=== PATIENT | female | born 1990 | race Caucasian/White ===

== ENCOUNTER 2016-11-25 18:32 | Emergency (ER) | payer MEDICAID ==
[2016-11-25] MEDS ORDERED: KETOROLAC 60 MG/2 ML VIAL IVP STA (18:46)
[2016-11-25] MEDS ORDERED: KETOROLAC 30 MG/ML VIAL ONE (18:49)
[2016-11-25] MEDS ORDERED: SODIUM CHLORIDE 0.9% 1,000 ML IV ONE (18:49)
[2016-11-25] MEDS ORDERED: IOPAMIDOL-300 100 ML VIAL IVP ONE (19:24)
[2016-11-25] MEDS ORDERED: MORPHINE 2 MG/ML SYRINGE IVP STA (19:51)
[2016-11-25] MEDS ORDERED: MORPHINE 2 MG/ML SYRINGE ONE (19:56)
[2016-11-25] MEDS ORDERED: HYDROmorphone 1 MG/ML SYRINGE IVP STA (20:45)
[2016-11-25] MEDS ORDERED: HYDROmorphone 1 MG/ML SYRINGE ONE (20:53)
[2016-11-25] MEDS ORDERED: oxyCOD/ACETAMIN 5 MG/325 MG TABLET PO STA (22:28)
[2016-11-25] MEDS ORDERED: oxyCOD/ACETAMIN 5 MG/325 MG TABLET PO ONE (22:35)
== END 2016-11-25 22:50 | disposition home or self-care (01) ==
DX: N83.202 Unspecified ovarian cyst, left side (principal)
CPT/HCPCS: 36415; 74177; 76830; 76856; 80053; 81003; 83690; 84702; 85025; 93975; 96374; 96375; 99284; A9270; J1170; Q9967

== ENCOUNTER 2017-08-03 09:03 | Emergency (ER) | payer MEDICAID ==
[2017-08-03 09:27] LABS: BILIRUBIN,URINE NEGATIVE (NEGATIVE)
[2017-08-03 09:32] LABS: UA CHARGE (STRIP ONLY) YES; UR CULTURE IF IND NOT INDICATED
[2017-08-03 09:55] LABS: ALBUMIN/GLOBULIN RATIO 1.4 (1.0-2.2); BILIRUBIN,TOTAL 0.4 mg/dL (0.2-1.0); CALCIUM 9.5 mg/dL (8.5-10.3); CREATININE 0.5 mg/dL (0.4-1.0); POTASSIUM 3.7 mmol/L (3.5-5.0); TOTAL PROTEIN 7.2 g/dL (6.7-8.2)
[2017-08-03] MEDS ORDERED: ACETAMINOPHEN 325 MG TABLET PO STA (09:56)
--- NOTE | 2017-08-03 10:00 | ED Physician Documentation ---
History of Present Illness - Stated complaint Stated Complaint: ABD PX/8WKS PREG - Chief complaint Chief Complaint: Abd Pain - Additonal information Additional information: hx from pt 26 LMP 10/2 abrupt onset severe lower abd pain and slight vag bleed prior miscarriage no OB care yet [facility] Systems Constitutional: denies: Fever Cardiac: denies: Chest pain / pressure Respiratory: denies: Dyspnea GI: reports: Abdominal Swelling. 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 - Present Medications Home Medications: Ambulatory Orders Medication Instructions Recorded Confirmed Pnv No.122/Iron/Folic Acid 1 tab PO DAILY 08/03/17 08/03/17 [ Multi Tablet] - Allergies Allergies/Adverse Reactions: Allergies Allergy/AdvReac Type Severity Reaction Status Date / Time No Known Drug Allergies Allergy Verified 11/25/16 18:38 - Social History Does the pt smoke?: No Smoking Status: Never smoker Does the pt drink ETOH?: No Does the pt have substance abuse?: No - Immunizations Immunizations are current?: Yes PD ED PE NORMAL - Vitals Vital signs reviewed: Yes - Cardiac Cardiac: RRR - Respiratory Respiratory: No respiratory distress - Abdomen Abdomen: No: Soft (rigid), Non tender (TTP lower abd) - Female 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 : 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 (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, os closed, no blood, no dc, cx sent) - Neuro Neuro: Alert and oriented X 3 Results - Vitals Vitals: Vital Signs - 24 hr 08/03/17 08/03/17 08/03/17 09:10 10:20 10:39 Temperature 37.3 C 37.7 C H Heart Rate 77 89 80 Respiratory 18 18 18 Rate Blood Pressure 144/68 H 169/90 H O2 Saturation 98 97 100 08/03/17 08/03/17 11:58 13:44 Temperature 37.0 C 36.6 C Heart Rate 62 71 Respiratory 15 15 Rate Blood Pressure 120/59 L 138/65 H O2 Saturation 99 100 Oxygen O2 Source Room air - Labs Labs: Laboratory Tests 08/03/17 08/03/17 08/03/17 09:18 09:30 09:34 WBC RBC Hgb Hct MCV MCH MCHC RDW Plt Count MPV Neut # Lymph # King # Eos # Baso # Absolute Nucleated RBC Nucleated RBC % Sodium 135 Potassium 3.7 Chloride 101 Carbon Dioxide 23 Anion Gap 11.0 BUN 12 Creatinine 0.5 Estimated GFR (MDRD) 148 Glucose 95 Calcium 9.5 Total Bilirubin 0.4 AST 19 ALT 14 Alkaline Phosphatase 51 Total Protein 7.2 Albumin 4.2 Globulin 3.0 Albumin/Globulin Ratio 1.4 Lipase 31 HCG, Quant 08787.00 Urine Color YELLOW Urine Clarity CLEAR Urine pH 7.0 Ur Specific Ola 1.015 Urine Protein NEGATIVE Urine Glucose (UA) NEGATIVE Urine Ketones NEGATIVE Urine Occult Blood NEGATIVE Urine Nitrite NEGATIVE Urine Bilirubin NEGATIVE Urine Urobilinogen 0.2 (NORMAL) Ur Leukocyte Esterase NEGATIVE Ur Microscopic Review NOT INDICATED Urine Culture Comments NOT INDICATED Blood Type 08/03/17 08/03/17 10:38 10:38 WBC 6.5 RBC 4.13 L Hgb 12.9 Hct 37.3 MCV 90.5 MCH 31.4 H MCHC 34.7 RDW 13.6 Plt Count 217 MPV 8.6 Neut # 4.0 Lymph # 1.8 King # 0.6 Eos # 0.0 Baso # 0.0 Absolute Nucleated RBC 0.00 Nucleated RBC % 0.0 Sodium Potassium Chloride Carbon Dioxide Anion Gap BUN Creatinine Estimated GFR (MDRD) Glucose Calcium Total Bilirubin AST ALT Alkaline Phosphatase Total Protein Albumin Globulin Albumin/Globulin Ratio Lipase HCG, Quant Urine Color Urine Clarity Urine pH Ur Specific Ola Urine Protein Urine Glucose (UA) Urine Ketones Urine Occult Blood Urine Nitrite Urine Bilirubin Urine Urobilinogen Ur Leukocyte Esterase Ur Microscopic Review Urine Culture Comments Blood Type O POSITIVE - Rads (name of study) OB sono Radiology: See rad report (single 6 week 4 day IUP FHR 111 no FF, small R ovarian cyst, no torsion) PD MEDICAL DECISION MAKING - ED course ED course: sharp and crampy lower abd pain rad to back with small bleeding, O + blood type, IUP on sono with FHR, peritoneal on exam but no FF or other abn seen on sono, serial 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 exams 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, 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, 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 on R but fairly diffuse, pt described pain as occurring intermittently and varying intervals and does not sound typical for appy concerned about severity of pain - plan to dc with threatened AB precautions but will d/w OB to arrange next day recheck d/w OB satellite installation technician Dr Jesus Departure - Departure Disposition: 01 Home, Self Care Clinical Impression: Threatened miscarriage Condition: Good Follow-Up: Mariano Jesus MD [Provider Admit Priv/Credential] - (tomorrow for a recheck - call to schedule a time) Comments: You are and the ultrasound shows a live baby in the uterus and no signs of an ectopic or ovarian problem. Your blood type is O + Your cervix is closed and there was no suggestion of infection on your pelvic exam. Having examined your belly over several hours, i do not think this is appendicitis. But I am concerned about how severe the pain is and so i have spoken to our OB Dr Jesus and he will see in the OB clinic at [facility] tomorrow for a recheck. May take tylenol for the pain i n the mean time ' Forms: Activity restrictions
[2017-08-03] MEDS ORDERED: ACETAMINOPHEN 325 MG TABLET PO ONE (10:09)
[2017-08-03] MEDS ORDERED: MORPHINE 2 MG/ML SYRINGE IVP STA (10:23)
[2017-08-03] MEDS ORDERED: MORPHINE 2 MG/ML SYRINGE ONE (10:35)
[2017-08-03 10:46] LABS: BASOPHILS % (AUTO) 0.7 %; EOSINOPHILS % (AUTO) 0.3 %; HCT - HEMATOCRIT 37.3 % (37.0-47.0); HGB - HEMOGLOBIN 12.9 g/dL (12.0-16.0); LYMPHOCYTES # (AUTO) 1.8 10^3/uL (1.5-3.5); LYMPHOCYTES % (AUTO) 27.5 %; MEAN CORPUSCULAR HEMOGLOBIN 31.4 pg (27.0-31.0); MEAN CORPUSCULAR HGB CONC 34.7 g/dL (32.0-36.0); MEAN CORPUSCULAR VOLUME 90.5 fL (81.0-99.0); MEAN PLATELET VOLUME 8.6 fL (7.9-10.8); MONOCYTES # (AUTO) 0.6 10^3/uL (0.0-1.0); MONOCYTES % (AUTO) 9.6 %; NEUTROPHILS % (AUTO) 61.9 %; RED BLOOD COUNT 4.13 10^6/uL (4.20-5.40); RED CELL DISTRIBUTION WIDTH 13.6 % (12.0-15.0); UNCORRECTED WHITE BLOOD COUNT 6.5 x10^3/uL; WHITE BLOOD COUNT 6.5 x10^3/uL (4.8-10.8)
[2017-08-03 13:44] VITALS: BP 138/65
--- NOTE | 2017-08-04 14:41 | Ultrasound Report ---
OB ULTRASOUND: 08/03/2017 CLINICAL HISTORY: Last menstrual period 05/30/2017, abrupt abdominal pain, question ectopic . TECHNIQUE: Real-time scanning by the farmworker cranberry with saved static images reviewed. Transabdominal approach with global evaluation; endovaginal study for detailed assessment of the fetus. LAST MENSTRUAL PERIOD 05/30/2017 Clinical Age 9 weeks 2 days US Age 6 weeks 4 days EFW Had[place] -- EFW% Hadlock -- Heart Rate 111 bpm EDC 03/06/2017 US EDC 03/25/2018 BPD Hadlock -- HC Hadlock -- AC Hadlock -- FL Hadlock -- Presentation -- Placental Location -- Cervical Length -- Amniotic Fluid -- FINDINGS: There is a single intrauterine gestational sac, mean gestational sac diameter 19.7 mm, 6 weeks 6 days. [place]-rump length 5.8 mm, 6 weeks 4 days; BETH 03/25/2018. Retroverted uterus without focal abnormality. Right ovary is 3.6 x 3.8 x 3.2 cm, volume 22.8 cubic centimeters, 2.6 x 2.8 x 2.5 cm cyst. Left ovary is 2.4 x 2.9 x 2.3 cm, volume 8.3 cubic centimeters, small cyst 1.8 x 2 x 1.1 cm. Minimal free fluid. IMPRESSION: SINGLE INTRAUTERINE GESTATION, AGE BY CROWN-RUMP LENGTH MEASUREMENTS TODAY IS 6 WEEKS 4 DAYS, BETH 03/25/2018. HEART RATE 111 BPM. YOLK SAC 2.4 MM. MTDD
== END 2017-08-03 14:13 | disposition home or self-care (01) ==
LOC: ED 09:03
DX: O20.0 Threatened abortion (principal); Z3A.01 Less than 8 weeks gestation of pregnancy
CPT/HCPCS: 36415; 76801; 76817; 80053; 81003; 83690; 84702; 85025; 86900; 86901; 87491; 87591; 96374; 99283; 99284; A9270; J2270; 81001; 87086

== ENCOUNTER 2017-09-02 16:21 | Outpatient (CLI) | payer MEDICAID | END 2017-09-02 16:22 | disposition home or self-care (01) | LOC: LAB.R 16:21 | PROVIDERS: ATTEND Registered Nurse | DX: Z11.3 Encounter for screening for infections with a predominantly sexual mode of transmission (principal) | CPT/HCPCS: 87491; 87591 ==

== ENCOUNTER 2017-10-19 11:23 | Outpatient (CLI) | payer MEDICAID ==
[2017-10-19 11:56] LABS: BASOPHILS % (AUTO) 0.5 %; EOSINOPHILS # (AUTO) 0.1 10^3/uL (0.0-0.7); EOSINOPHILS % (AUTO) 0.8 %; HGB - HEMOGLOBIN 12.6 g/dL (12.0-16.0); LYMPHOCYTES # (AUTO) 2.1 10^3/uL (1.5-3.5); MEAN CORPUSCULAR HEMOGLOBIN 32.4 pg (27.0-31.0); MEAN CORPUSCULAR HGB CONC 35.2 g/dL (32.0-36.0); MEAN CORPUSCULAR VOLUME 92.1 fL (81.0-99.0); MEAN PLATELET VOLUME 8.7 fL (7.9-10.8); MONOCYTES # (AUTO) 0.6 10^3/uL (0.0-1.0); MONOCYTES % (AUTO) 7.7 %; NEUTROPHILS # (AUTO) 5.6 10^3/uL (1.5-6.6); PLT - PLATELET COUNT 212 10^3/uL (130-450); RED CELL DISTRIBUTION WIDTH 13.2 % (12.0-15.0); WHITE BLOOD COUNT 8.5 x10^3/uL (4.8-10.8)
[2017-10-19 12:03] LABS: BILIRUBIN,URINE NEGATIVE (NEGATIVE); CLARITY,URINE CLEAR (CLEAR); GLUCOSE, URINE (UA) NEGATIVE (NEGATIVE); KETONES,URINE (UA) 15 mg/dL (NEGATIVE); LEUKOCYTE ESTERASE, URINE NEGATIVE (NEGATIVE); NITRITE,URINE NEGATIVE (NEGATIVE); OCCULT BLOOD,URINE NEGATIVE (NEGATIVE); PH,URINE 6.5 PH (5.0-7.5); PROTEIN,URINE NEGATIVE (NEGATIVE); UROBILINOGEN,URINE 0.2 (NORMAL) E.U./dL (NORMAL)
[2017-10-19 12:31] LABS: BACTERIA,URINE Rare /HPF (None Seen); RBC,URINE 0-5 /HPF (0-5); SQUAMOUS EPITHELIAL CELL,UR MANY Squamous (<= Few)
[2017-10-20 10:45] LABS: HEPATITIS B SURFACE ANTIGEN NON-REACTIVE (NON-REACTIVE)
[2017-10-20 13:31] LABS: HIV AG/AB 4TH GEN NON-REACTIVE (NON-REACTIVE)
== END 2017-10-19 11:24 | disposition home or self-care (01) ==
LOC: LAB 11:23
PROVIDERS: ATTEND Registered Nurse
DX: Z36.9 Encounter for antenatal screening, unspecified (principal)
CPT/HCPCS: 36415; 81001; 81599; 85025; 86762; 86850; 86900; 86901; 87340; 87389

== ENCOUNTER 2017-11-11 12:16 | Outpatient (CLI) | payer MEDICAID ==
--- NOTE | 2017-11-14 11:58 | Ultrasound Report ---
DETAILED OB ANATOMIC SURVEY: 11/11/2017 COMPARISON: OB ultrasound 08/03/2017. INDICATION: Anatomic survey. TECHNIQUE: Real-time scanning was performed with entry level marketing representative static images obtained. LAST MENSTRUAL PERIOD: 06/20/2017 Clinical Age: 20 weeks 4 days US Age: 21 weeks 0 days EFW Hadlock: 387 g EFW% Hadlock: --- Heart Rate: 146 bpm EDC: 03/27/2018 US EDC: 03/24/2018 BPD [place]: 21 weeks 3 days Mean mm 50.8 HC [place]: 20 weeks 5 days Mean mm 183.8 AC Hadlock: 21 weeks 3 days Mean mm 163.1 FL Hadlock: 20 weeks 3 days Mean mm 33.2 Presentation: variable Placental Location: posterior Cervical Length: 3.4 cm Amniotic Fluid: 4.8 cm FINDINGS: The following structures were evaluated and appeared normal: Choroid plexus, lateral ventricles, midline falx, cavum septum pellucidum, cisterna magnum, cerebellum, nuchal fold, nasal bone, coronal face, nose, lips, open hands, cardiac situs, 4 chamber heart, ventricular outflow tracts, stomach and situs, heart, stomach, bladder, diaphragm, kidneys, bladder, cord insertion , spine, upper and lower extremities, and leg foot relationships. The following maternal structures appear unremarkable, the uterus, cervix and bilateral adnexa. There is no free fluid. The cervix is 3.4 cm long and closed. IMPRESSION: SINGLE VIABLE INTRAUTERINE , SIZE CONCORDANT WITH DATES. NO ANOMALIES. MTDD
== END 2017-11-11 12:17 | disposition home or self-care (01) ==
LOC: DI 12:16
PROVIDERS: ATTEND Nurse Practitioner Obstetrics & Gynecology
DX: Z36.9 Encounter for antenatal screening, unspecified (principal)
CPT/HCPCS: 76811

== ENCOUNTER 2017-11-16 15:00 | Outpatient (CLI) | payer MEDICAID | END 2017-11-16 15:01 | disposition home or self-care (01) | LOC: LAB.R 15:00 | PROVIDERS: ATTEND Registered Nurse | DX: Z34.82 Encounter for supervision of other normal pregnancy, second trimester (principal) | CPT/HCPCS: 87086 ==

== ENCOUNTER 2017-12-14 12:03 | Outpatient (CLI) | payer MEDICAID ==
[2017-12-14 12:41] VITALS: BP 123/59
[2017-12-14 12:54] LABS: RUPTURE OF MEMBRANES PLUS NEGATIVE (NEGATIVE)
== END 2017-12-14 13:22 | disposition home or self-care (01) ==
LOC: WFO 12:03 → FBP 12:05 → WFO 13:22
PROVIDERS: ATTEND Nurse Practitioner Obstetrics & Gynecology
DX: O47.02 False labor before 37 completed weeks of gestation, second trimester (principal); Z3A.25 25 weeks gestation of pregnancy
CPT/HCPCS: 84112; 99212

== ENCOUNTER 2018-01-31 12:06 | Outpatient (CLI) | payer MEDICAID ==
[2018-01-31 13:35] LABS: HGB - HEMOGLOBIN 12.4 g/dL (12.0-16.0); MEAN CORPUSCULAR HEMOGLOBIN 32.6 pg (27.0-31.0); MEAN CORPUSCULAR HGB CONC 35.1 g/dL (32.0-36.0); MEAN CORPUSCULAR VOLUME 92.8 fL (81.0-99.0); MEAN PLATELET VOLUME 9.3 fL (7.9-10.8); RED BLOOD COUNT 3.82 10^6/uL (4.20-5.40); RED CELL DISTRIBUTION WIDTH 12.5 % (12.0-15.0); WHITE BLOOD COUNT 9.9 x10^3/uL (4.8-10.8)
== END 2018-01-31 12:07 | disposition home or self-care (01) ==
LOC: LAB 12:06
PROVIDERS: ATTEND Nurse Practitioner Obstetrics & Gynecology
DX: Z36.89 Encounter for other specified antenatal screening (principal)
CPT/HCPCS: 36415; 82950; 85027; 86850

== ENCOUNTER 2018-02-15 16:55 | Outpatient (CLI) | payer MEDICAID ==
[2018-02-15 17:54] LABS: RUPTURE OF MEMBRANES PLUS NEGATIVE (NEGATIVE)
[2018-02-15 18:43] VITALS: BP 136/85
--- NOTE | 2018-02-15 18:43 | PROVIDER PROGRESS NOTE ---
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 I was called by Ms. Luh CNM who informed me that patient was evaluated in clinc and that nitrazine and ferning testing were both +. Patient sent over to [facility] from clinic. Patient reports believing she has been leaking fluid for several days, no big gush, ROS negative for contractions, fever, chills, severe abdominal pain or other. Patient is a 27 y.o. EGA 34 2/7 weeks. She is requesting that a female provider examine and evaluate her here instead of a male provider. She is OK with me looking over Lois Craven's shoulder while she performs the speculum exam, assessment and collection of specimens for evaluation by me. Patient has never had BV, denies foul vaginal odor or itching. O: VSS/AF RNST, Category 1 tracing with no contractions. Speculum Exam on FBP: Clear and thin and watery fluid, small amount in posterior vagina. Nitrazine Neg Valsalva Neg Ferning Test Neg by me ROM+ test Negative Cx exam not performed, but appears visually closed ABD US by me: KOKO 13.2 with active fetus and posterior fundal placenta. A/P: Patient does not have ROM on my examination. Patient informed and reassured by findings. Cause of fluid in vagina consistent with physiologic discharge of . Patient to follow up at regularly scheduled appointments, sooner prn. All questions answered to her and spouse's satisfaction. Objective - Lab Results Other Labs: Lab Results x24hrs 02/15/18 Range/Units 17:29 Membranes Rupture NEGATIVE (NEGATIVE)
== END 2018-02-15 18:10 | disposition home or self-care (01) ==
LOC: FBP 16:55 → WFO 16:55
PROVIDERS: ATTEND Registered Nurse
DX: Z34.83 Encounter for supervision of other normal pregnancy, third trimester (principal)
CPT/HCPCS: 59025; 84112; 87081; 87480; 87510; 87660; 99212

== ENCOUNTER 2018-02-28 11:03 | Outpatient (CLI) | payer MEDICAID ==
[2018-02-28 11:47] LABS: CREATININE 0.5 mg/dL (0.4-1.0)
[2018-02-28 11:52] LABS: BASOPHILS % (AUTO) 0.5 %; EOSINOPHILS # (AUTO) 0.1 10^3/uL (0.0-0.7); EOSINOPHILS % (AUTO) 0.9 %; HGB - HEMOGLOBIN 11.8 g/dL (12.0-16.0); LYMPHOCYTES # (AUTO) 1.7 10^3/uL (1.5-3.5); LYMPHOCYTES % (AUTO) 19.5 %; MEAN CORPUSCULAR HEMOGLOBIN 33.1 pg (27.0-31.0); MEAN CORPUSCULAR HGB CONC 34.7 g/dL (32.0-36.0); MEAN CORPUSCULAR VOLUME 95.4 fL (81.0-99.0); MEAN PLATELET VOLUME 10.7 fL (7.9-10.8); MONOCYTES # (AUTO) 0.7 10^3/uL (0.0-1.0); MONOCYTES % (AUTO) 7.8 %; NEUTROPHILS # (AUTO) 6.3 10^3/uL (1.5-6.6); NEUTROPHILS % (AUTO) 71.3 %; PLT - PLATELET COUNT 159 10^3/uL (130-450); RED BLOOD COUNT 3.57 10^6/uL (4.20-5.40); RED CELL DISTRIBUTION WIDTH 12.6 % (12.0-15.0); WHITE BLOOD COUNT 8.8 x10^3/uL (4.8-10.8)
[2018-02-28 11:58] LABS: CREATININE,URINE 314.5 mg/dL; PROTEIN/CREATININE RATIO,URINE 0.2 (<=0.2)
[2018-02-28 12:29] VITALS: BP 130/72
== END 2018-02-28 12:15 | disposition home or self-care (01) ==
LOC: WFO 11:03 → FBP 11:04 → WFO 12:15
PROVIDERS: ATTEND Nurse Practitioner Obstetrics & Gynecology
DX: O16.3 Unspecified maternal hypertension, third trimester (principal); Z3A.36 36 weeks gestation of pregnancy
CPT/HCPCS: 36415; 59025; 82565; 82570; 83615; 84156; 84450; 84550; 85025

== ENCOUNTER 2018-03-02 10:47 | Outpatient (CLI) | payer MEDICAID ==
[2018-03-02 14:15] LABS: COLLECTION TIME,URINE 1440 min; CREATININE,URINE 155.9 mg/dL
[2018-03-02 14:16] LABS: TOTAL VOLUME,URINE 530 mL
[2018-03-03 11:08] LABS: TOTAL PROTEIN 24HR,URINE 339 mg/24hr (40-150); TOTAL PROTEIN,URINE TIMED 64 mg/dL; TOTAL VOLUME 24HRS,URINE 530 mL
== END 2018-03-02 10:48 | disposition home or self-care (01) ==
LOC: LAB 10:47
PROVIDERS: ATTEND Nurse Practitioner Obstetrics & Gynecology
DX: Z36.9 Encounter for antenatal screening, unspecified (principal); O14.03 Mild to moderate pre-eclampsia, third trimester
CPT/HCPCS: 36415; 82575; 84156

== ENCOUNTER 2018-03-02 11:05 | Outpatient (CLI) | payer MEDICAID ==
[2018-03-02 11:41] VITALS: BP 121/74
[2018-03-02 12:18] LABS: ALT ALANINE AMINOTRANSFERASE 26 IU/L (10-60); AST ASPARTATE AMINOTRANSFERASE 32 IU/L (10-42)
[2018-03-06 17:37] LABS: CHENODEOXYCHOLIC ACID 0.7 umol/L (< OR = 3.1); CHOLIC ACID 0.6 umol/L (< OR = 1.8); DEOXYCHOLIC ACID <0.5 umol/L (< OR = 2.4); TOTAL BILE ACIDS <1.5 umol/L (< OR = 6.8)
== END 2018-03-02 12:05 | disposition home or self-care (01) ==
LOC: WFO 11:05 → FBP 11:07 → WFO 12:05
PROVIDERS: ATTEND Obstetrics & Gynecology
DX: O26.893 Other specified pregnancy related conditions, third trimester (principal); O14.03 Mild to moderate pre-eclampsia, third trimester; Z36.9 Encounter for antenatal screening, unspecified; Z3A.36 36 weeks gestation of pregnancy
CPT/HCPCS: 36415; 59025; 82542; 82575; 84156; 84450; 84460

== ENCOUNTER 2018-03-04 19:10 | Outpatient (CLI) | payer MEDICAID ==
[2018-03-04 19:40] LABS: BASOPHILS % (AUTO) 0.3 %; EOSINOPHILS % (AUTO) 0.5 %; HGB - HEMOGLOBIN 12.4 g/dL (12.0-16.0); LYMPHOCYTES # (AUTO) 2.3 10^3/uL (1.5-3.5); LYMPHOCYTES % (AUTO) 25.8 %; MEAN CORPUSCULAR HEMOGLOBIN 33.8 pg (27.0-31.0); MEAN CORPUSCULAR HGB CONC 35.5 g/dL (32.0-36.0); MEAN CORPUSCULAR VOLUME 95.2 fL (81.0-99.0); MEAN PLATELET VOLUME 10.3 fL (7.9-10.8); MONOCYTES # (AUTO) 0.8 10^3/uL (0.0-1.0); MONOCYTES % (AUTO) 8.4 %; NEUTROPHILS # (AUTO) 5.9 10^3/uL (1.5-6.6); PLT - PLATELET COUNT 175 10^3/uL (130-450); RED BLOOD COUNT 3.66 10^6/uL (4.20-5.40); RED CELL DISTRIBUTION WIDTH 12.8 % (12.0-15.0); WHITE BLOOD COUNT 9.1 x10^3/uL (4.8-10.8)
[2018-03-04 19:51] LABS: URIC ACID 4.6 mg/dL (2.6-7.2)
[2018-03-04 22:29] VITALS: BP 140/82
[2018-03-05] MEDS ORDERED: LACTATED RINGERS 1,000 ML IV ONE (01:53)
[2018-03-05] MEDS ORDERED: OXYTOCIN/SODIUM CHLORIDE 500 ML IV ONE (02:14)
== END 2018-03-04 21:28 | disposition home or self-care (01) ==
LOC: WFO 19:10 → FBP 19:12 → WFO 21:28
PROVIDERS: ATTEND Registered Nurse
DX: O14.93 Unspecified pre-eclampsia, third trimester (principal); Z3A.36 36 weeks gestation of pregnancy
CPT/HCPCS: 36415; 59025; 83615; 84450; 84550; 85025; 99212

== ENCOUNTER 2018-03-05 10:38 | Inpatient (IN) | payer MEDICAID ==
[2018-03-05] MEDS ORDERED: SODIUM CHLORIDE FLUSH 0.9% 10 ML SYRINGE ONE (11:27)
[2018-03-05 11:41] LABS: BASOPHILS % (AUTO) 0.4 %; EOSINOPHILS % (AUTO) 0.5 %; HGB - HEMOGLOBIN 12.2 g/dL (12.0-16.0); LYMPHOCYTES # (AUTO) 1.8 10^3/uL (1.5-3.5); LYMPHOCYTES % (AUTO) 23.4 %; MEAN CORPUSCULAR HGB CONC 34.8 g/dL (32.0-36.0); MEAN CORPUSCULAR VOLUME 94.7 fL (81.0-99.0); MEAN PLATELET VOLUME 10.9 fL (7.9-10.8); MONOCYTES # (AUTO) 0.7 10^3/uL (0.0-1.0); MONOCYTES % (AUTO) 8.5 %; NEUTROPHILS # (AUTO) 5.3 10^3/uL (1.5-6.6); NEUTROPHILS % (AUTO) 67.2 %; PLT - PLATELET COUNT 160 10^3/uL (130-450); WHITE BLOOD COUNT 7.9 x10^3/uL (4.8-10.8)
[2018-03-05 11:48] LABS: URIC ACID 4.6 mg/dL (2.6-7.2)
[2018-03-05] MEDS ORDERED: OXYTOCIN/SODIUM CHLORIDE 250 ML IV ONE (13:23)
[2018-03-05] MEDS ORDERED: ONDANSETRON 4 MG/2 ML VIAL IVP PRN (13:23)
[2018-03-05] MEDS ORDERED: PROMETHAZINE 25 MG TABLET PO PRN (13:23)
--- NOTE | 2018-03-05 13:30 | HISTORY & PHYSICAL EXAMINATION ---
Admit History - Instructions [place]/Slash: -Left hand click circles element as positive or present. -Right hand click slashes element as negative or not present. - Visit Reason Visit Reason: Other (pre-eclampsia w/ increasing BPs, intermittent severe-range elevations, non-persistent) - : 3 Parity: 0 Premature: 0 Ectopic: 0 : 2 Care: positive: [facility] (beginning @ 10 weeks' gestation x9 total visits) Risk/History: positive: None Complications This : positive: Pre-eclampsia Smoking Status: Never smoker - Mother's Labs Mother's Blood Type: positive: O Mother's RH: positive: Positive GBS: positive: Group B Step Negative Rubella Status: positive: Immune Meds/Allgy - Home Medications Home Medications: Ambulatory Orders Medication Instructions Recorded Confirmed Pnv No.122/Iron/Folic Acid 1 tab PO DAILY 08/03/17 08/03/17 [ Multi Tablet] - Allergies Allergies/Adverse Reactions: Allergies Allergy/AdvReac Type Severity Reaction Status Date / Time No Known Drug Allergies Allergy Verified 11/25/16 18:38 Review of Systems - Constitutional Constitutional: reports: Fatigue. denies: Fever, Chills, Malaise - Eyes Eyes: reports: Blurred vision. denies: Pain, Spots in vision - Cardiovascular Cariovascular: reports: Edema. denies: Irregular heart rate, Palpitations, Chest pain - Respiratory Respiratory: reports: SOB with exertion. denies: Cough, Sputum production, Wheezing, SOB at rest - Gastrointestinal Gastrointestinal: denies: Abdominal pain, Constipation, Diarrhea, Change in bowel habits, Nausea, Vomiting - Genitourinary Genitourinary: reports: Frequency, Urgency. denies: Dysuria, Incontinence - Musculoskeletal Musculoskeletal: denies: Muscle pain, Back pain, Muscle aches - Integumentary Integumentary: reports: Pruritis. denies: Rash, Lesions - Neurological Neurological: reports: Headache (intermittent, non-severe). denies: General weakness, Focal weakness, Dizziness, Numbness - Psychiatric Psychiatric: reports: Anxiety (re: pain in labor). denies: Depression - All Other Systems All Other Systems: reports: Other (+FM, no LOF, no contractions she is noting, no VB or changes in vaginal d/c) Physical - Abdominal Exam Vital Signs: Temp Pulse Resp BP Pulse Ox 36.6 C 67 16 140/80 H 98 03/05/18 11:00 03/05/18 11:00 03/05/18 11:00 03/05/18 11:00 03/05/18 11:00 Contraction Frequency (min/apart): rare Contraction Intensity: positive: Mild to moderate Uterine Resting Tone: positive: Soft - Monitoring Heart Rate Baseline: 145 Strip Review: positive: Category I - Presentation Presentation: positive: Vertex - Vaginal Exam Membranes: positive: Membranes intact Dilation (in cm): 1 Effacement (%): 80 Station: positive: 0 Cervical Position: positive: Posterior (soft) - Speculum Exam Speculum Exam Performed: positive: No Findings: negative: Gross leak - Other Notes Labor Progress Note/Additional Text: Saniya Melo is a 27 y/o @ 36w6d by 10 week who received care @ [facility] beginning @ 10 weeks' gestation x9 total visits. Her was complicated by onset of intermittent elevated BP @ 34 weeks' gestation w/ dx of PET @ 36 weeks' gestation w/ worsening BP elevation over the course of the past week, elevated BP now accompanied by intermittent RAMIREZ, some blurry vision. Her has further been complicated by anxiety w/ declination of SSRI for management & generalized pruritus beginning @ 36 weeks' gestation w/ normal LFTs & bile acids pending. She presents today w/ request for initiation of IOL for PET w/ scheduled IOL 03/06/2018, secondary to concerns re: worsening disease process, more frequent HAs & BPs in 160s/100s @ home. 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 PE: GEN: AAOX3, NAD WA gravid female HEENT: Grossly normocephalic, atraumatic RESP: Lungs b/l CTA t/o CARDIAC: RRR nls1s2, no murmur GI: Gravid, NT, lie longitudinal, presentation cephalic; EFW 6-6.5# OB: EFM: BL 145bpm +accels, no decels, mod variability; TOCO: UCs rare; SVE 1/80 /0, posterior, soft : No lesion, no abnormal exudate MS: FROM t/o, no deformity; +3 pitting b/l LE edema to the knee, generalized edema +1 SKIN: warm, well-perfused, C/D/I, no lesion; +tattoos NEURO: B/L LE DTRs +2, no clonus, no focal deficity PSYCH: anxious, but otherwise pleasantly conversant Plan for Labor - Plan For Labor I expect patient to be DC'd or transferred within 96 hours.: Yes Plan for Labor: 1. Reviewed pathophysiology of PET & current findings 2. Reviewed rationale for IOL & need for pre-induction cervical ripening as well as options for timing, reviewed all preinduction cervical ripening modalities; pt elects beginning IOL process now & elects buccal misoprostol as cervical ripening agent, articulates full understanding of all risks/benefits/ alternatives, informed consent obtained 3. Reviewed pain management options, pt desires ultimate early epidural placement, would like to utilize nitrous in the interim; reviewed all risks/ benefits/alternatives, pt articulates full understanding 4. careful BP monitoring w/ initiation of antihypertensive therapy for persistent severe-range BPs, initiation of Magnesium sulfate for same 5. Begin misoprostol 50mcg BC q 4 hours; reassess cervical status as clinically indicated 6. Ambein 10mg for sleep tonight if not actively laboring & if w/o epidural 7. Reviewed anticipatory guidance for preinduction cervical ripening 8. Reassess PET labs daily @ minimum, earlier as clinically warranted 9. Reviewed plan of care w/ pt, partner, RN @ bedside & Dr. 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
[2018-03-05] MEDS: miSOPROStol 100 MCG TABLET BC SCH ×3 (14:16→22:35)
[2018-03-05] MEDS: LACTATED RINGERS 1,000 ML IV SCH (14:19)
[2018-03-05] MEDS: SODIUM CHLORIDE FLUSH 0.9% 10 ML SYRINGE IVP SCH ×2 (18:08→18:16)
[2018-03-06] MEDS: ZOLPIDEM 5 MG TABLET PO PRN ×2 (00:32→23:06)
[2018-03-06] MEDS: miSOPROStol 100 MCG TABLET BC SCH ×6 (02:37→23:06)
[2018-03-06 06:17] LABS: CREATININE 0.4 mg/dL (0.4-1.0); URIC ACID 4.2 mg/dL (2.6-7.2)
[2018-03-06] MEDS: SODIUM CHLORIDE FLUSH 0.9% 10 ML SYRINGE IVP SCH ×3 (07:06→18:14)
[2018-03-06] MEDS: LACTATED RINGERS 1,000 ML IV SCH ×3 (07:07→23:06)
--- NOTE | 2018-03-06 09:20 | PROVIDER PROGRESS NOTE ---
Labor Progress Note - Uterine Monitoring Uterine Monitoring Mode: positive: External toco Contraction Frequency (min/apart): 2-6 Contraction Intensity: positive: Mild to moderate Uterine Resting Tone: positive: Soft - Monitoring Monitor Mode: positive: External ultrasound Heart Rate Baseline: 130 Heart Rate Variability: positive: Moderate (6-25 bmp) Accelerations: positive: Present, 15x15 Decelerations: positive: None Strip Review: positive: Category I - Vaginal Exam Dilation (in cm): 1 Effacement (%): 80 Station: -1 Cervical Position: Midposition - Labor Progress Note Labor Progress Note/Additional Text: S: Sitting comfortably in bed. Using nitrous oxide at the bedside. Anxiety about feeling discomfort. O: Last SVE 0650 /-1, midposition, vertex. FHR baseline 130s, moderate variability, + accels, no decels. Contractions palpate moderate every 2-6 minutes lasting 60-90 seconds with soft resting tone. A: 27yo @ 37.0wks gestation Mild PET Cervical ripening in anticipation for IOL P: Continue cervical ripening. Encouraged position changes. Activity and nutrition as indicated. Nitrous Oxide for pain management. Anticipate initiation of pitocin per protocol when cervix ripe. Anticipate admission in <48 hours. Patient and verbalized understanding and agree to above plan. Denies further questions or concerns at this time.
[2018-03-06] MEDS: fentaNYL 100 MCG/2 ML VIAL IVP PRN ×7 (09:50→23:05)
[2018-03-06] MEDS: SODIUM CHLORIDE FLUSH 0.9% 10 ML SYRINGE IVP PRN ×4 (09:50→23:05)
--- NOTE | 2018-03-06 18:09 | PROVIDER PROGRESS NOTE ---
Labor Progress Note - Uterine Monitoring Uterine Monitoring Mode: positive: External toco Contraction Frequency (min/apart): 2-4 Contraction Intensity: positive: Mild to moderate Uterine Resting Tone: positive: Soft - Monitoring Monitor Mode: positive: External ultrasound Heart Rate Baseline: 140 Heart Rate Variability: positive: Moderate (6-25 bmp) Accelerations: positive: Present, 15x15 Decelerations: positive: None Strip Review: positive: Category I - Vaginal Exam Dilation (in cm): 1 Effacement (%): 80 Station: 0 Cervical Position: Posterior - Labor Progress Note Labor Progress Note/Additional Text: S: Pt sitting in bed breathing through contractions with mother and at the bedside. Pain well controlled with IVP Fentanyl intermittently for pain management. O: BP 142/83, afebrile. FHR baseline 140s, moderate variability, + accels, no decels. Contractions palpate moderate every 2-4 minutes with soft resting tone. SVE 1/80/0, vertex, midposition, medium consistency. A: 27yo @ 37.0wks gestation Mild PET Moderate range BPs Cervical ripening with 50mcg of misoprostol q 4 hours P: Continue cervical ripening with misoprostol q 4 hours Serial BP monitoring. Repeat PIH labs now. Discussed regalado cervical ripening balloon initiation if cervix unchanged in the morning. Activity and nutrition as indicated. Encouraged position changes and ambulation. Pt and partner verbalized understanding and agrees to above plan. Denies further questions or concerns at this time.
[2018-03-06 18:32] LABS: BASOPHILS % (AUTO) 0.4 %; EOSINOPHILS # (AUTO) 0.1 10^3/uL (0.0-0.7); EOSINOPHILS % (AUTO) 0.8 %; HGB - HEMOGLOBIN 12.4 g/dL (12.0-16.0); LYMPHOCYTES # (AUTO) 2.8 10^3/uL (1.5-3.5); MEAN CORPUSCULAR HEMOGLOBIN 32.1 pg (27.0-31.0); MEAN CORPUSCULAR HGB CONC 33.3 g/dL (32.0-36.0); MEAN CORPUSCULAR VOLUME 96.5 fL (81.0-99.0); MEAN PLATELET VOLUME 10.5 fL (7.9-10.8); MONOCYTES # (AUTO) 1.1 10^3/uL (0.0-1.0); MONOCYTES % (AUTO) 9.6 %; NEUTROPHILS # (AUTO) 7.2 10^3/uL (1.5-6.6); NEUTROPHILS % (AUTO) 64.2 %; PLT - PLATELET COUNT 173 10^3/uL (130-450); RED BLOOD COUNT 3.86 10^6/uL (4.20-5.40); WHITE BLOOD COUNT 11.2 x10^3/uL (4.8-10.8)
[2018-03-06 18:44] LABS: URIC ACID 4.1 mg/dL (2.6-7.2)
[2018-03-07] MEDS: fentaNYL 100 MCG/2 ML VIAL IVP PRN ×6 (00:21→06:48)
[2018-03-07] MEDS: SODIUM CHLORIDE FLUSH 0.9% 10 ML SYRINGE IVP PRN ×6 (00:21→06:48)
[2018-03-07] MEDS: LACTATED RINGERS 1,000 ML IV SCH ×3 (01:13→12:33)
[2018-03-07] MEDS: miSOPROStol 100 MCG TABLET BC SCH (03:26)
[2018-03-07] MEDS ORDERED: fent/BUPIV 2 MCG/0.125% 250 ML EP ONE (07:02)
[2018-03-07] MEDS ORDERED: BUPIVACAINE 0.25% PF 10 ML VIAL ONE (07:02)
[2018-03-07] MEDS ORDERED: fent/BUPIV 2 MCG/0.125% 250 ML EP PRN (07:23)
[2018-03-07] MEDS ORDERED: NALBUPHINE 10 MG/ML AMP IVP PRN (07:23)
[2018-03-07] MEDS ORDERED: ONDANSETRON 4 MG/2 ML VIAL IVP PRN (07:23)
[2018-03-07] MEDS ORDERED: NALOXONE 0.4 MG/ML VIAL IVP PRN (07:23)
[2018-03-07] MEDS ORDERED: ePHEDrine 50 MG/ML VIAL IVP PRN (07:23)
--- NOTE | 2018-03-07 07:28 | PROVIDER PROGRESS NOTE ---
Labor Progress Note - Uterine Monitoring Uterine Monitoring Mode: positive: External toco Contraction Frequency (min/apart): 2-6 Contraction Intensity: positive: Moderate Uterine Resting Tone: positive: Soft - Monitoring Monitor Mode: positive: External ultrasound Heart Rate Baseline: 120 Heart Rate Variability: positive: Moderate (6-25 bmp) Accelerations: positive: Present, 15x15 Decelerations: positive: Early Strip Review: positive: Category I - Vaginal Exam Dilation (in cm): 1 Effacement (%): 100 Station: 0 Cervical Position: Midposition - Labor Progress Note Labor Progress Note/Additional Text: S: Patient uncomfortable and tired. She slept very little last night and she requested epidural for pain management at 0600 this morning. Mood is good. supportive at the bedside. O: BP 125/54, RR 18, HR 67. FHR baseline 120s, moderate variability, + accels, no decels. Contractions palpate moderate every 2-6 minutes lasting 60-100 seconds. Heart RRR w/o M/G/R, lungs CTAB, abdomen gravid, soft, nontender. SVE 1 -2/100/0, vertex, midposition. A: 27yo @ 37.1wks gestation Mild PET PIH labs stable P: Epidural placed upon maternal request. Plan AROM and pitocin. Continuous monitoring. Pt verbalized understanding and agrees to above plan. She denies further questions or concerns at this time.
--- NOTE | 2018-03-07 07:52 | PROVIDER PROGRESS NOTE ---
Labor Progress Note - Uterine Monitoring Uterine Monitoring Mode: positive: External toco Contraction Frequency (min/apart): 2-6 Contraction Intensity: positive: Moderate Uterine Resting Tone: positive: Soft - Monitoring Monitor Mode: positive: External ultrasound Heart Rate Baseline: 120 Heart Rate Variability: positive: Moderate (6-25 bmp) Accelerations: positive: Present, 15x15 Decelerations: positive: Early Strip Review: positive: Category I - Vaginal Exam Dilation (in cm): 5 Effacement (%): 100 Station: 0 Cervical Position: Anterior - Labor Progress Note Labor Progress Note/Additional Text: S: Patient laying comfortable with epidural. supportive at the bedside. Anxiety about pain but overall feels improved and desires to sleep. Pt states she has been leaking consistently and is unable to identify a SROM time. States her best guess is midnight last night and reports continuous leakage of clear fluid. O: SVE 5/100/0, vertex, soft, stretchy, anterior position. No membranes present on examination. FHR baseline 120s, moderate variability, + accels, occasional early decelerations. Contractions palpate moderate every 2-6 minutes. A: 27yo @ 37.1wks gestation Mild PET Category I tracing P: Initiation of pitocin per protocol. Repeat SVE in 4 hours unless otherwise clinically indicated. Pt verbalized understanding and agrees to above plan. Denies further questions or concerns at this time.
[2018-03-07] MEDS: OXYTOCIN/SODIUM CHLORIDE 500 ML IV SCH (08:36)
[2018-03-07] MEDS: SODIUM CHLORIDE FLUSH 0.9% 10 ML SYRINGE IVP SCH ×2 (08:37→19:56)
[2018-03-07] MEDS ORDERED: OXYTOCIN/SODIUM CHLORIDE 250 ML IV ONE ×2 (15:01→17:39)
[2018-03-07] MEDS ORDERED: HYDROCORTISONE/PRAMOXINE 10 GM PR PRN (15:01)
[2018-03-07] MEDS ORDERED: WITCH HAZEL/GLYCERIN 1 EACH MED..PAD TOP PRN (15:01)
--- NOTE | 2018-03-07 15:17 | DELIVERY NOTE ---
Delivery Note - Labor Labor: positive: Induced by oxytocin - Infant Delivery Method Delivery Method: positive: Spontaneous vaginal delivery - Presentation Presentation: positive: Vertex, URBANO - left occiput anterior - Nuchal Cord Nuchal Cord: positive: None - Amniotic Fluid Description Amniotic Fluid Description: positive: Clear - Episiotomy Type Episiotomy Type: positive: None - Laceration Laceration: positive: None - Delivery Outcome Delivery Outcome: positive: Livebirth - [place] : positive: Placed in direct skin contact with mother, Stimulated, Lyn[place] used sex: positive: Female - Cord Cord: positive: 3 vessels - Placenta Placenta: positive: Intact, Spontaneous - Estimated Blood Loss Estimated Blood Loss (in cc): 300 - Post Delivery Events Post Delivery Events: positive: No post delivery events - Delivery Comments (Free Text/Narrative) Delivery Comments (Free Text/Narrative): Labor: This 27yo @ 37.1wks gestation by LMP presented on 03/05/2018 with moderately elevated BP's and previously diagnosed preeclampsia. Cervical ripening with 50mcg misoprostol q4 hours BC initiation for cervical ripening in anticipation for induction of labor indication for preeclampsia. SROM small amount of clear fluid at 0001 on 03/07/2018. Effective cervical ripening was achieved and pt requested an epidural for pain management. Pitocin IOL was initiated and titrated per protocol for a max dosage of 6. Patient progressed to c/c/+2 and and pushing at 1309. : Normal of a viable female infant named Shell. No nuchal cord. ' s were 8 and 9 at 1 and 5 min respectively on 03/07/2018 at 1440. The was placed on maternal abdomen, stimulated, dried, and placed skin to skin. The umbilical cord was allowed to stop pulsating at which time it was doubly clamped and cut by FOB. Cord blood was obtained. Placenta delivered spontaneously and intact at 1444. 3VC. Pitocin was administered via IV for hemostasis. EBL 300mL. Uterine fundus firm and there is no excessive bleeding. The perineum, vagina, and cervix were inspected and found to be intact. Superficial right, anterior, labial separation of skin noted and was hemostatic - no repair required. Vaginal examination following the repair was done. Tissues well approximated. initiated. Both mother and baby were left in stable condition.
--- NOTE | 2018-03-07 16:27 | ANESTHESIA POST OP EVALUATION ---
Anesthesia Post Eval - Post Anesthesia Eval CV Function Including HR & BP: positive: Stable Pain Control: positive: Adequate Nausea & Vomiting: positive: Negative Mental Status: positive: Appropriate Anesthesia Complications: positive: None (Patient stated that she had good pain management for her labor and delivery with epidural placed by Mary Lou Jay CRNA. I told her she could have low back discomfort that may persist for a week or two, that a spinal headache is rare but to call us if she develops a headache. I told her to call if she has any redness, drainage, or pain at insertion site. Patient was sitting up nursing, with no complaints.)
[2018-03-07] MEDS: IBUPROFEN 800 MG TABLET PO SCH ×2 (16:50→23:21)
[2018-03-07] MEDS: ACETAMINOPHEN 500 MG TABLET PO SCH ×2 (16:51→21:34)
[2018-03-07] MEDS: HYDROcod/ACETAM 5/325 MG TABLET PO PRN ×2 (17:55→21:19)
[2018-03-07] MEDS: DOCUSATE SODIUM 100 MG CAPSULE PO SCH (23:21)
[2018-03-08] MEDS: HYDROcod/ACETAM 5/325 MG TABLET PO PRN ×4 (01:46→13:51)
[2018-03-08] MEDS: ACETAMINOPHEN 500 MG TABLET PO SCH (02:41)
[2018-03-08] MEDS: IBUPROFEN 800 MG TABLET PO SCH ×4 (05:20→23:40)
--- NOTE | 2018-03-08 08:19 | PROVIDER PROGRESS NOTE ---
Subjective - Subjective Subjective: S: Bonding well with baby. without difficulty. Pain well controlled with [place] 5/325. Bleeding decreased and is moderate/menstrual-like. Perineum comfortable. Did not sleep well throughout the night. She feels she may have gotten 2 hours of sleep. Feels anxious about baby. O: Heart RRR w/o M/G/R. Lungs CTAB. Abdomen soft and nontender with fundus firm at U-1. Perineum intact. Light lochia rubra. A: 27yo -->P1 s/p TSVB of viable female infant named Shell. Mild PET - normotensive. P: Continue routine care and meds. Reviewed anxiety and increased risk of depression - discussed initiation of zoloft prior to discharge. She plans to consider and will further discuss tomorrow. She verbalized understanding and denies further questions or concerns at this time. Will plan for discharge home tomorrow. Objective - Vital Signs/Intake & Output Vital Signs: Vital Signs x48h Temp Pulse Resp BP Pulse Ox 03/08/18 05:56 137/90 H 03/08/18 05:50 36.8 C 63 16 153/74 H 100 Intake & Output: Intake & Output 03/05/18 03/06/18 03/07/18 03/08/18 23:59 23:59 23:59 23:59 Intake Total 4025 486 0733 Output Total 550 200 Balance 7950 556 7017 - - Lab Results Fish Bones: 03/06/18 18:20 03/06/18 05:41
[2018-03-08] MEDS ORDERED: ACETAMINOPHEN 500 MG TABLET PO PRN (08:20)
[2018-03-08] MEDS: DOCUSATE SODIUM 100 MG CAPSULE PO SCH ×2 (10:01→20:50)
[2018-03-08] MEDS: SODIUM CHLORIDE FLUSH 0.9% 10 ML SYRINGE IVP SCH ×3 (16:53→23:04)
[2018-03-08] MEDS: LACTATED RINGERS 1,000 ML IV SCH ×2 (16:54→23:04)
[2018-03-08] MEDS: HYDROcod/ACETAM 10 MG/325 MG TABLET PO PRN ×2 (17:54→23:40)
[2018-03-08] MEDS: OXYTOCIN/SODIUM CHLORIDE 500 ML IV SCH (20:50)
[2018-03-09] MEDS: SODIUM CHLORIDE FLUSH 0.9% 10 ML SYRINGE IVP SCH ×2 (05:28→12:55)
[2018-03-09] MEDS: IBUPROFEN 800 MG TABLET PO SCH ×2 (05:36→12:02)
[2018-03-09] MEDS: HYDROcod/ACETAM 10 MG/325 MG TABLET PO PRN (05:36)
--- NOTE | 2018-03-09 08:35 | Discharge Plan ---
Discharge Plan Disposition: 01 Home, Self Care Condition: Good Diet: Regular Activity Restrictions: No Restrictions Shower Restrictions: No Driving Restrictions: No Weight Bearing: Full Weight Additional Instructions or Follow Up instructions: S: Bonding well with baby. without difficulty and denies nipple discomfort. Has ample colostrum dripping from nipples bilaterally. Pain well controlled and she desires to take only ibuprofen at home. +BM soft without discomfort. Perineum comfortable. O: Heart RRR w/o M/G/R. Lungs CTAB. Abdomen soft and nontender with fundus firm U-2. Bilateral LE's 2+ pitting edema bilaterally. Perineum intact. A: 27yo -->P1 s/p TSVD of viable female over intact perineum Mild PET - normotensive P: Reviewed self care and warning signs. Planning IUD for contraception at 8 weeks visit. Advised ibuprofen 800mg q 8hrs PRN pain. We reviewed previous recommendation for initiation of Zoloft secondary to maternal anxiety and she desires to wait and see how she does at home for the first week prior to initiation and I feel this is acceptable. Discharge home today on day #2. She plans to follow up with myself at [facility] in 1 week for visit, in 3 weeks for visit, and in 8 weeks for annual well woman exam and IUD placement. No Smoking: If you smoke, Please STOP! Call for help. Follow-up with: Kelli Arvizu CNM, [place] [Provider Admit Priv/Credential] -
--- NOTE | 2018-03-09 08:46 | PROVIDER PROGRESS NOTE ---
Subjective - Subjective Subjective: Final Progress Note: PPD#2 S: Bonding well with baby. without difficulty and denies nipple discomfort. Has ample colostrum dripping from nipples bilaterally. Pain well controlled and she desires to take only ibuprofen at home. +BM soft without discomfort. Perineum comfortable. O: Heart RRR w/o M/G/R. Lungs CTAB. Abdomen soft and nontender with fundus firm U-2. Bilateral LE's 2+ pitting edema bilaterally. Perineum intact. A: 27yo -->P1 s/p TSVD of viable female over intact perineum Mild PET - normotensive PPD #2 P: Reviewed self care and warning signs. Planning IUD for contraception at 8 weeks visit. Advised ibuprofen 800mg q 8hrs PRN pain. We reviewed previous recommendation for initiation of Zoloft secondary to maternal anxiety and she desires to wait and see how she does at home for the first week prior to initiation and I feel this is acceptable. PIH labs ordered prior to discharge to ensure stability of mild PET. Plans to return tomorrow for BP check. Discharge home today on day #2. She plans to follow up with myself at [facility] in 1 week for visit, in 3 weeks for visit, and in 8 weeks for annual well woman exam and IUD placement. Objective - Vital Signs/Intake & Output Vital Signs: Vital Signs x48h Pulse Resp BP 03/09/18 07:17 77 16 142/78 H Intake & Output: Intake & Output 03/06/18 03/07/18 03/08/18 03/09/18 23:59 23:59 23:59 23:59 Intake Total 700 2550 Output Total 550 200 Balance 700 1999 - - Lab Results Fish Bones: 03/06/18 18:20 03/06/18 05:41
[2018-03-09] MEDS: DOCUSATE SODIUM 100 MG CAPSULE PO SCH (10:08)
[2018-03-09 10:15] LABS: BASOPHILS # (AUTO) 0.1 10^3/uL (0.0-0.1); BASOPHILS % (AUTO) 0.8 %; EOSINOPHILS # (AUTO) 0.2 10^3/uL (0.0-0.7); EOSINOPHILS % (AUTO) 1.3 %; HGB - HEMOGLOBIN 12.1 g/dL (12.0-16.0); LYMPHOCYTES # (AUTO) 2.1 10^3/uL (1.5-3.5); LYMPHOCYTES % (AUTO) 18.6 %; MEAN CORPUSCULAR HEMOGLOBIN 32.8 pg (27.0-31.0); MEAN CORPUSCULAR HGB CONC 34.5 g/dL (32.0-36.0); MEAN PLATELET VOLUME 10.1 fL (7.9-10.8); MONOCYTES # (AUTO) 0.7 10^3/uL (0.0-1.0); MONOCYTES % (AUTO) 6.5 %; NEUTROPHILS # (AUTO) 8.3 10^3/uL (1.5-6.6); NEUTROPHILS % (AUTO) 72.8 %; PLT - PLATELET COUNT 171 10^3/uL (130-450); WHITE BLOOD COUNT 11.5 x10^3/uL (4.8-10.8)
[2018-03-09 10:30] LABS: URIC ACID 5.2 mg/dL (2.6-7.2)
[2018-03-09] MEDS: OXYTOCIN/SODIUM CHLORIDE 500 ML IV SCH (12:55)
[2018-03-09] MEDS: LACTATED RINGERS 1,000 ML IV SCH (12:55)
[2018-03-09] MEDS ORDERED: LABETALOL 100 MG TABLET PO SCH (13:00)
[2018-03-09 16:39] VITALS: BP 148/78
--- NOTE | 2018-03-09 17:32 | Labor Flowsheet ---
Labor Flowsheet Datetime Report Generated by CPN: 03/09/2018 17:31 Datetime: 03/09/2018 16:29 VITAL SIGNS NBP Sys/Ana Laura/Mean (mmHg): 148 : 78 : 91 Pulse: 75 LaborFlag: Labor Datetime: 03/09/2018 12:19 SpO2 (%): 100 Datetime: 03/07/2018 15:09 Hygiene: Yanira Care; Underpad Changed Datetime: 03/07/2018 15:03 Respirations: 18 Temperature (C): 36.5 Datetime: 03/07/2018 14:48 Anesthesia Comments: Epidural off Datetime: 03/07/2018 14:42 Patient Care Comments: Pitocin open @999 Datetime: 03/07/2018 14:39 UTERINE ACTIVITY Monitor Mode: External Frequency (min): 1.5-2.5 Quality: Strong Duration (sec): 60-80 Pattern: Normal: <= 5 Contractions in 10 Minutes Resting Tone (Palpate): Relaxed ASSESSMENT A Monitor Mode: External US FHR Baseline Changes: No Baseline Change Variability: Moderate 6-25 bpm Accelerations: 15X15 Category: Category I Comments: Pt pushing and baby , difficult to determine decels Datetime: 03/07/2018 14:30 Contraction Comments: RN palpating ctxs FHR Baseline Rate : 135 Decelerations: Early Datetime: 03/07/2018 14:09 MEDICATIONS Pitocin (milliunits): Increased to @ 6 Datetime: 03/07/2018 13:31 I/O Interventions: Bruner Discontinued Datetime: 03/07/2018 13:09 VAGINAL EXAM Dilatation (cm): 10.0 Effacement (%): 100 Station: 2 Exam by: CNM Luh Datetime: 03/07/2018 12:08 Monitor Interventions for FHR: Ultrasound Adjusted Datetime: 03/07/2018 12:00 MATERNAL ASSESSMENT Level of Consciousness: Fully Conscious DTR's/Clonus: DTRs 2+ Headache: Denies Nausea/Vomiting: Denies RUQ Epigastric Pain: Denies Datetime: 03/07/2018 11:24 Stage of : Labor Monitor Interventions for UA: [place] Adjusted Pitocin Checklist: At Least 1 Acceleration of 15 bpm x 15 Seconds in 30 Minutes or Adequate Variabi lity; No More than 5 Uterine Contractions in 10 Minutes for any 20 Minute Interval; Uterus Palpates S oft between Contractions PAIN Pain Scale: 1 Pain Presence: None/Denies Pain Type: Pressure Datetime: 03/07/2018 11:23 Patient Position/Activity: Right Lateral Datetime: 03/07/2018 11:06 Anesthesia Level Check: T10- Umbilicus Datetime: 03/07/2018 11:04 Oxygen Method: Room Air Datetime: 03/07/2018 10:30 Medication Comments: pt asleep, L lateral Datetime: 03/07/2018 08:30 Temperature Route: Oral Datetime: 03/07/2018 07:11 Epidural Procedure Other: Pump Started Datetime: 03/07/2018 07:05 Epidural Procedure: Loading Dose Datetime: 03/07/2018 06:54 PROCEDURE TIME OUT Procedure Verify: Correct Patient Identity; Correct Side and Site are Marked; Accurate Procedure Co nsent Form; Agreement on Procedure to be Done; Correct Patient Position ANESTHESIA Anesthesia Plans: Epidural Epidural Positioning: Sitting Datetime: 03/07/2018 06:48 Analgesics/Sedatives: Fentanyl (mcg) @ 50 Datetime: 03/07/2018 06:43 PATIENT CARE IV/Blood Work: IV Bolus Given ml @ 425 Datetime: 03/07/2018 06:26 Antiemetics/Antacids: Zofran (mg) @ 4 Datetime: 03/07/2018 06:06 COMMUNICATION Communication: Call/Page Placed to Provider Provider Notified (Name): Kimberly Arvizu CNM, ARNP Communication Comments: CNM notified about patient's recent vaginal exam and decreased pain relief from non-pharmacological pain interventions that were accepted and Fentanyl. Order received to get ep idural placed. Datetime: 03/07/2018 05:49 Vaginal Bleeding: None Cervix, Consistency: Soft Cervix, Position: Midposition Datetime: 03/07/2018 03:26 Cervical Ripening Agents: Cytotec @ Datetime: 03/07/2018 03:18 Pain Coping: Sleeping Datetime: 03/07/2018 00:01 Membrane Status: Ruptured Membranes Rupture Method: Spontaneous Amniotic Fluid Color: Clear Amniotic Fluid Amount: Small Amniotic Fluid Odor: Normal Datetime: 03/06/2018 20:35 Pain Assessment Comments: In Jacuzzi Comfort Measures: Hot Shower/Tub/Spa Datetime: 03/06/2018 19:55 Pain Location: Abdomen; Back Pain Relief Measures: Pain Medication Given Datetime: 03/06/2018 18:26 Pain Goal: 4 Datetime: 03/06/2018 17:42 Notification Reason: Status Update; Status; Labor Status; Uterine Activity; Pain Datetime: 03/06/2018 15:39 Breath Sounds, Left: Clear and Equal Breath Sounds, Right: Clear and Equal Datetime: 03/06/2018 08:59 Provider Reviewed Strip: Yes Strip Reviewed by: MARY Arvizu
--- NOTE | 2018-03-10 03:06 | PROVIDER PROGRESS NOTE ---
Subjective - Subjective Subjective: 03/09/2018 @ 4212 Phone call from OB RN to inform of elevated BPs immediately prior to discharge. BPs 140s-150s/80s-90s. Pt denies RAMIREZ, visual disturbances, RUQ or epigastric pain. Bilateral LE's 2+ pitting edema. LFT's and uric acid mildly increased from 03/06/2018 although remain WNL. Hgb & Hct stable. PLTs 171 - stable. I reviewed the clinical information with Dr. Laguna, on-call ETL APPLICATION DEVELOPER whom is in agreement with plan to initiate lobetalol 100mg PO bid and hold discharge x 3 hours with serial BPs during that time. Will re-evaluate in 3 hours or sooner PRN. Objective - Vital Signs/Intake & Output Vital Signs: Vital Signs x48h Temp Pulse Resp BP Pulse Ox 03/10/18 01:45 86 143/83 H 96 03/10/18 01:35 82 131/73 H 97 03/10/18 01:15 81 136/75 H 96 03/10/18 01:00 82 149/88 H 97 03/10/18 00:31 160/92 H 03/10/18 00:15 70 143/83 H 99 03/10/18 00:05 150/87 H 03/09/18 23:48 36.9 C 85 16 165/97 H - Lab Results Fish Bones: 03/09/18 10:06 03/06/18 05:41 Other Labs: Lab Results x24hrs 03/10/18 03/09/18 03/09/18 Range/Units 01:15 23:55 23:55 WBC (4.8-10.8) x10^3/uL RBC (4.20-5.40) 10^6/uL Hgb (12.0-16.0) g/dL Hct (37.0-47.0) % MCV (81.0-99.0) fL MCH (27.0-31.0) pg MCHC (32.0-36.0) g/dL RDW (12.0-15.0) % Plt Count (130-450) 10^3/uL MPV (7.9-10.8) fL Neut # (Auto) (1.5-6.6) 10^3/uL Lymph # (Auto) (1.5-3.5) 10^3/uL [place] # (Auto) (0.0-1.0) 10^3/uL Eos # (Auto) (0.0-0.7) 10^3/uL Baso # (Auto) (0.0-0.1) 10^3/uL Absolute Nucleated RBC x10^3/uL Nucleated RBC % /100WBC Fibrinogen 473 (220-496) mg/dL Uric Acid 4.5 (2.6-7.2) mg/dL AST 44 H (10-42) IU/L Lactate Dehydrogenase (91-225) IU/L Urine Creatinine 29.4 mg/dL Ur Total Protein Timed 39 mg/dL Protein/Creatinin Ratio 1.3 H (<=0.2) 03/09/18 03/09/18 Range/Units 23:55 23:55 WBC 11.8 H (4.8-10.8) x10^3/uL RBC 3.48 L (4.20-5.40) 10^6/uL Hgb 11.5 L (12.0-16.0) g/dL Hct 32.8 L (37.0-47.0) % MCV 94.3 (81.0-99.0) fL MCH 33.0 H (27.0-31.0) pg MCHC 35.0 (32.0-36.0) g/dL RDW 13.0 (12.0-15.0) % Plt Count 185 (130-450) 10^3/uL MPV 9.9 (7.9-10.8) fL Neut # (Auto) 8.4 H (1.5-6.6) 10^3/uL Lymph # (Auto) 2.3 (1.5-3.5) 10^3/uL [place] # (Auto) 0.8 (0.0-1.0) 10^3/uL Eos # (Auto) 0.2 (0.0-0.7) 10^3/uL Baso # (Auto) 0.1 (0.0-0.1) 10^3/uL Absolute Nucleated RBC 0.00 x10^3/uL Nucleated RBC % 0.0 /100WBC Fibrinogen (220-496) mg/dL Uric Acid (2.6-7.2) mg/dL AST (10-42) IU/L Lactate Dehydrogenase 222 (91-225) IU/L Urine Creatinine mg/dL Ur Total Protein Timed mg/dL Protein/Creatinin Ratio (<=0.2)
--- NOTE | 2018-03-10 03:13 | PROVIDER PROGRESS NOTE ---
Subjective - Subjective Subjective: 03/09/2018 @ 1550 BPs 140s-150s/80s Denies RAMIREZ, visual disturbances, RUQ or epigastric pain. PE: Heart RRR w/o M/G/R, lungs CTAB, abdomen soft and nontender with fundus firm at U-2. No tenderness noted with deep palpation over RUQ. Bilateral LE's 2 + pitting edema. DTRs 2+. No clonus. Pt strongly desires to be discharged as previously discussed this morning and has bags packed and loaded into the car in anticipation for going home. Risks of discharge reviewed extensively today including risk of eclamptic seizure. Reviewed warning s/sx and when to present for immediate evaluation. Rx sent to [facility] [place] for 100mg Lobetalol PO bid with instructions to take 1 tab PO at 0400 on 03/10/2018. Outpatient lab slip provided to patient with instructions to return to [facility] 03/10/2018 at 0900 for repeat labs and BP check. Patient has instructions to return for a weight check for baby Sahar as well. August present at the bedside for our discussion and both he and the patient verbalized understanding and agree to the above plan. Objective - Vital Signs/Intake & Output Vital Signs: Vital Signs x48h Temp Pulse Resp BP Pulse Ox 03/10/18 03:04 93 136/79 H 96 03/10/18 01:45 86 143/83 H 96 03/10/18 01:35 82 131/73 H 97 03/10/18 01:15 81 136/75 H 96 03/10/18 01:00 82 149/88 H 97 03/10/18 00:31 160/92 H 03/10/18 00:15 70 143/83 H 99 03/10/18 00:05 150/87 H 03/09/18 23:48 36.9 C 85 16 165/97 H - Lab Results Fish Bones: 03/09/18 10:06 03/06/18 05:41 Other Labs: Lab Results x24hrs 03/10/18 03/09/18 03/09/18 Range/Units 01:15 23:55 23:55 WBC (4.8-10.8) x10^3/uL RBC (4.20-5.40) 10^6/uL Hgb (12.0-16.0) g/dL Hct (37.0-47.0) % MCV (81.0-99.0) fL MCH (27.0-31.0) pg MCHC (32.0-36.0) g/dL RDW (12.0-15.0) % Plt Count (130-450) 10^3/uL MPV (7.9-10.8) fL Neut # (Auto) (1.5-6.6) 10^3/uL Lymph # (Auto) (1.5-3.5) 10^3/uL [place] # (Auto) (0.0-1.0) 10^3/uL Eos # (Auto) (0.0-0.7) 10^3/uL Baso # (Auto) (0.0-0.1) 10^3/uL Absolute Nucleated RBC x10^3/uL Nucleated RBC % /100WBC Fibrinogen 473 (220-496) mg/dL Uric Acid 4.5 (2.6-7.2) mg/dL AST 44 H (10-42) IU/L Lactate Dehydrogenase (91-225) IU/L Urine Creatinine 29.4 mg/dL Ur Total Protein Timed 39 mg/dL Protein/Creatinin Ratio 1.3 H (<=0.2) 03/09/18 03/09/18 Range/Units 23:55 23:55 WBC 11.8 H (4.8-10.8) x10^3/uL RBC 3.48 L (4.20-5.40) 10^6/uL Hgb 11.5 L (12.0-16.0) g/dL Hct 32.8 L (37.0-47.0) % MCV 94.3 (81.0-99.0) fL MCH 33.0 H (27.0-31.0) pg MCHC 35.0 (32.0-36.0) g/dL RDW 13.0 (12.0-15.0) % Plt Count 185 (130-450) 10^3/uL MPV 9.9 (7.9-10.8) fL Neut # (Auto) 8.4 H (1.5-6.6) 10^3/uL Lymph # (Auto) 2.3 (1.5-3.5) 10^3/uL [place] # (Auto) 0.8 (0.0-1.0) 10^3/uL Eos # (Auto) 0.2 (0.0-0.7) 10^3/uL Baso # (Auto) 0.1 (0.0-0.1) 10^3/uL Absolute Nucleated RBC 0.00 x10^3/uL Nucleated RBC % 0.0 /100WBC Fibrinogen (220-496) mg/dL Uric Acid (2.6-7.2) mg/dL AST (10-42) IU/L Lactate Dehydrogenase 222 (91-225) IU/L Urine Creatinine mg/dL Ur Total Protein Timed mg/dL Protein/Creatinin Ratio (<=0.2)
--- NOTE | 2018-03-23 15:09 | DISCHARGE SUMMARY ---
Physician: AMERICA Ho DATE OF ADMISSION: 03/05/2018 DATE OF DISCHARGE: 03/09/2018 DIAGNOSES ON ADMISSION 1. A 27-year-old, G1, P0, at 37.0 weeks' gestation. 2. Mild preeclampsia. 2. Cervical ripening, anticipation for induction of labor. DIAGNOSES ON DISCHARGE 1. A 27-year-old G1, P1-0-0-1, status post spontaneous vaginal delivery on 03/07/2018. 2. Mild preeclampsia, normotensive. 3. . HISTORY OF PRESENT ILLNESS: She is a patient of [facility] who presented on 03/05/2018 for induction of labor secondary to mild preeclampsia. She achieved effective cervical ripening and requested epidural for pain management. Pitocin induction of labor was initiated and titrated per protocol for a max dose of 6. The patient progressed to complete, complete, +2 and pushing at 1309 hours on 03/07/2018. She delivered a viable female over an intact perineum. Apgars were 8 and 9 at one and five minutes, respectively. EBL 300 mL. She has been doing well in her course. She is ambulating and tolerating a regular diet. She is urinating without difficulty, and her lochia is normal. Her pain is well controlled with oral medications. She will be discharged home today on day #2, with instructions to follow up tomorrow, 03/10/2018 at 0900 for repeat labs and a blood pressure check. She was also given instructions to take 100 mg labetalol p.o. b.i.d. at 0400 hours on 03/10/2018. She was reviewed warning signs and symptoms, and when to present for immediate evaluation to Labor and Delivery. She intends to follow up with myself at [facility] tomorrow for followup blood pressure secondary to mild preeclampsia. She has been given precautions to call if she has any worsening fevers, chills, abdominal pain, increased vaginal bleeding or foul smelling vaginal lochia. She has been given precautions to present if she has elevated blood pressures greater than 140/90, in addition to severe headache, right upper quadrant or epigastric pain, visual disturbances or increased edema. The patient verbalized understanding and agreed with the above plan. , August, present at the bedside for our discussion, and both he and the patient verbalized understanding, and denied further questions or concerns at this time. TD: 03/23/2018 12:11
--- NOTE | 2018-03-28 13:57 | DISCHARGE SUMMARY ---
Physician: AMERICA Ho DATE OF ADMISSION: 03/05/2018 DATE OF DISCHARGE: 03/09/2018 PLEASE VERIFY Duplicate dictation? obs. dates =03/05, record shows formal admit=03/07 dc date =03/09 Contact HIM Medical Records/Form Grader Operator if need to cancel any duplicate [id number] or [id number] PLEASE REMOVE THIS FLAG BEFORE SIGNING DIAGNOSES ON ADMISSION 1. A 27-year-old G3, P0 at 36.6 weeks' gestation. 2. Preeclampsia. 3. Induction of labor secondary to preeclampsia. DIAGNOSES ON DISCHARGE 1. A 27-year-old G3, P1-0-2-1 status post spontaneous vaginal delivery on 03/07/2018. 2. Preeclampsia. The patient has remained normotensive. 3. . BRIEF HISTORY: She is a patient at [facility] who presented on 03/05/2018 with eleva steve blood pressure over the course of the past week, accompanied by intermittent headache and blurry vision. Cervix was noted to be 1, 80, 0 posterior. Effective cervical ripening was achieved, and th e patient requested an epidural for pain management. Pitocin induction of labor was initiated and ti trated per protocol for a max dosage of 6. She spontaneously delivered a viable female infant named Ganga. Apgars were 8 and 9 at one and five minutes, respectively, on 03/07/2018. EBL 300 mL. Perin eum, vagina and cervix were inspected and found to be intact. She has been doing well in her course. She is ambulating and tolerating a regular diet. She is urinating without difficulty. Her lochia is normal. Her pain is well controlled with oral me dications. She will be discharged home today on day #2. PIH labs ordered prior to discha rge to ensure stability of preeclampsia. She plans to return tomorrow for a blood pressure check. D ischarged home today on day #2 with instructions to follow up with myself at [facility] in 1 week for and blood pressure check, in 3 weeks for visit, and in 8 weeks for annual well woman exam and IUD placement. She has been given precautions to call if s he has any worsening fevers, chills, abdominal pain, increased bleeding, foul-smelling vaginal lochia , worsening headache, visual disturbances, right upper quadrant or epigastric pain, and worsening gretchen TD: 03/27/2018 10:59
== END 2018-03-09 17:15 | disposition home or self-care (01) | DRG 774 ==
LOC: WFO 10:38 → FBP 10:41 → WFO 13:20 → FBP 13:23 → OBSVTOIN 03-07 08:00
PROVIDERS: ADMIT Registered Nurse; ATTEND Registered Nurse
PROC: 10E0XZZ Delivery of Products of Conception, External Approach (ICD-10-PCS; principal; 2018-03-07)
DX: O14.04 Mild to moderate pre-eclampsia, complicating childbirth (principal); O14.05 Mild to moderate pre-eclampsia, complicating the puerperium; O70.0 First degree perineal laceration during delivery; O99.344 Other mental disorders complicating childbirth; F41.9 Anxiety disorder, unspecified; Z3A.37 37 weeks gestation of pregnancy; Z37.0 Single live birth
CPT/HCPCS: 36415; 51702; 59025; 82565; 83615; 84450; 84550; 85025; 96374; 96375; 96376

== ENCOUNTER 2018-03-09 23:21 | Inpatient (IN) | payer MEDICAID ==
[2018-03-10 00:07] LABS: BASOPHILS # (AUTO) 0.1 10^3/uL (0.0-0.1); BASOPHILS % (AUTO) 0.4 %; EOSINOPHILS # (AUTO) 0.2 10^3/uL (0.0-0.7); EOSINOPHILS % (AUTO) 1.9 %; HGB - HEMOGLOBIN 11.5 g/dL (12.0-16.0); LYMPHOCYTES # (AUTO) 2.3 10^3/uL (1.5-3.5); LYMPHOCYTES % (AUTO) 19.3 %; MEAN CORPUSCULAR VOLUME 94.3 fL (81.0-99.0); MEAN PLATELET VOLUME 9.9 fL (7.9-10.8); MONOCYTES # (AUTO) 0.8 10^3/uL (0.0-1.0); NEUTROPHILS # (AUTO) 8.4 10^3/uL (1.5-6.6); NEUTROPHILS % (AUTO) 71.4 %; PLT - PLATELET COUNT 185 10^3/uL (130-450); RED BLOOD COUNT 3.48 10^6/uL (4.20-5.40); WHITE BLOOD COUNT 11.8 x10^3/uL (4.8-10.8)
[2018-03-10 00:15] LABS: URIC ACID 4.5 mg/dL (2.6-7.2)
[2018-03-10] MEDS ORDERED: LABETALOL 100 MG TABLET PO SCH (00:45)
[2018-03-10] MEDS ORDERED: FUROSEMIDE 20 MG TABLET PO SCH (01:00)
[2018-03-10 01:57] LABS: CREATININE,URINE 29.4 mg/dL; PROTEIN/CREATININE RATIO,URINE 1.3 (<=0.2)
[2018-03-10] MEDS ORDERED: MAGNESIUM SULFATE IN WATER 20 GM/500 ML IV.SOLN IV SCH (02:20)
[2018-03-10] MEDS ORDERED: SODIUM CHLORIDE FLUSH 0.9% 10 ML SYRINGE ONE ×3 (02:31→14:32)
[2018-03-10] MEDS: MAGNESIUM SULFATE 2 GRAM 2 GM/50 ML BAG IV SCH ×2 (02:48→03:13)
[2018-03-10] MEDS ORDERED: LACTATED RINGERS 1,000 ML IV SCH (03:00)
--- NOTE | 2018-03-10 03:21 | PROVIDER PROGRESS NOTE ---
Subjective - Subjective Subjective: 03/09/2018 @ 2300 Patient phones through the answering service and states she took her BP at home to reveal BP 162/100. She states she feels odd and is worried. She denies RAMIREZ, visual disturbances, RUQ or epigastric pain, reports edema is persistent but not increased. I advised her to present to [facility] immediately - August plans to drive her. Patient expresses significant anxiety about being okay. I reassured her that she made the right decision to call and that the best/safest place for her at this time is at the hospital. She verbalized understanding and agrees to above plan. August heard in the background stating they will leave and present to L&D. Dr. Laguna, anger control counselor physician notified of patient status and symptoms. He is in agreement with the plan to repeat [facility] labs upon arrival and ensure inclusion of protein/creatinine ratio, in addition to serial BP monitoring. [facility] RN notified and verbal orders given to be fulfilled immediately upon her arrival. Objective - Vital Signs/Intake & Output Vital Signs: Vital Signs x48h Temp Pulse Resp BP Pulse Ox 03/10/18 03:04 93 136/79 H 96 03/10/18 01:45 86 143/83 H 96 03/10/18 01:35 82 131/73 H 97 03/10/18 01:15 81 136/75 H 96 03/10/18 01:00 82 149/88 H 97 03/10/18 00:31 160/92 H 03/10/18 00:15 70 143/83 H 99 03/10/18 00:05 150/87 H 03/09/18 23:48 36.9 C 85 16 165/97 H Intake & Output: Intake & Output 03/07/18 03/08/18 03/09/18 03/10/18 23:59 23:59 23:59 23:59 Intake Total 50 Balance 50 - Lab Results Fish Bones: 03/09/18 23:55 Other Labs: Lab Results x24hrs 03/10/18 03/09/18 03/09/18 Range/Units 01:15 23:55 23:55 WBC (4.8-10.8) x10^3/uL RBC (4.20-5.40) 10^6/uL Hgb (12.0-16.0) g/dL Hct (37.0-47.0) % MCV (81.0-99.0) fL MCH (27.0-31.0) pg MCHC (32.0-36.0) g/dL RDW (12.0-15.0) % Plt Count (130-450) 10^3/uL MPV (7.9-10.8) fL Neut # (Auto) (1.5-6.6) 10^3/uL Lymph # (Auto) (1.5-3.5) 10^3/uL [place] # (Auto) (0.0-1.0) 10^3/uL Eos # (Auto) (0.0-0.7) 10^3/uL Baso # (Auto) (0.0-0.1) 10^3/uL Absolute Nucleated RBC x10^3/uL Nucleated RBC % /100WBC Fibrinogen 473 (220-496) mg/dL Uric Acid 4.5 (2.6-7.2) mg/dL AST 44 H (10-42) IU/L Lactate Dehydrogenase (91-225) IU/L Urine Creatinine 29.4 mg/dL Ur Total Protein Timed 39 mg/dL Protein/Creatinin Ratio 1.3 H (<=0.2) 03/09/18 03/09/18 Range/Units 23:55 23:55 WBC 11.8 H (4.8-10.8) x10^3/uL RBC 3.48 L (4.20-5.40) 10^6/uL Hgb 11.5 L (12.0-16.0) g/dL Hct 32.8 L (37.0-47.0) % MCV 94.3 (81.0-99.0) fL MCH 33.0 H (27.0-31.0) pg MCHC 35.0 (32.0-36.0) g/dL RDW 13.0 (12.0-15.0) % Plt Count 185 (130-450) 10^3/uL MPV 9.9 (7.9-10.8) fL Neut # (Auto) 8.4 H (1.5-6.6) 10^3/uL Lymph # (Auto) 2.3 (1.5-3.5) 10^3/uL [place] # (Auto) 0.8 (0.0-1.0) 10^3/uL Eos # (Auto) 0.2 (0.0-0.7) 10^3/uL Baso # (Auto) 0.1 (0.0-0.1) 10^3/uL Absolute Nucleated RBC 0.00 x10^3/uL Nucleated RBC % 0.0 /100WBC Fibrinogen (220-496) mg/dL Uric Acid (2.6-7.2) mg/dL AST (10-42) IU/L Lactate Dehydrogenase 222 (91-225) IU/L Urine Creatinine mg/dL Ur Total Protein Timed mg/dL Protein/Creatinin Ratio (<=0.2)
--- NOTE | 2018-03-10 03:57 | PROVIDER PROGRESS NOTE ---
Subjective - Subjective Subjective: S: Pt anxious about condition. Denies RAMIREZ, RUQ or epigastric pain. She denies pain or discomfort at this times. Asks many questions although they are appropriate. without difficulty. and mother supportive at the bedside. Mother is extremely overbearing and anxious about condition and frequently wakes the patient to ask questions about symptoms. O: Heart RRR w/o M/G/R, lungs CTAB, no tenderness noted with palpation of RUQ. Bilateral LE's 3+ pitting edema bilaterally. DTRs 2+. No clonus. BP 140s-130s/70s-80s. Hgbs 12.4 -->12.1 -->11.5 Hct 37.2-->35.2-->32.8 PLT count 173-->171-->185 AST 27-->39-->44 LDH 154-->219-->222 Uric acid 4.1-->5.2-->4.5 Protein/creatinine ratio 0.2-->1.3 03/03/18 24 hour urine 339 A: 27yo s/p TSVD of viable female Moderate PET progressed to severe PET P: Magnesium sulfate initiated with 4g loading dose followed by a maintenance dose of 2g/hour for prevention of eclampsia. Continue 200mg lobetalol PO bid Lasix 10mg PO now. Repeat [facility] labs with protein/creatinine ratio in addition to Mg level at 0700 on 03/10/2018. Clinical data and plan of care presented to Dr. Laguna, on-call HTML DEVELOPER whom is in agreement. At this time we will continue with a collaborative management plan of care with sign out of CN care to HTML DEVELOPER care at 0800 on 03/10/2018. Objective - Vital Signs/Intake & Output Vital Signs: Vital Signs x48h Temp Pulse Resp BP Pulse Ox 03/10/18 03:13 88 140/80 H 92 03/10/18 03:04 93 136/79 H 96 03/10/18 01:45 86 143/83 H 96 03/10/18 01:35 82 131/73 H 97 03/10/18 01:15 81 136/75 H 96 03/10/18 01:00 82 149/88 H 97 03/10/18 00:31 160/92 H 03/10/18 00:15 70 143/83 H 99 03/10/18 00:05 150/87 H 03/09/18 23:48 36.9 C 85 16 165/97 H Intake & Output: Intake & Output 03/07/18 03/08/18 03/09/18 03/10/18 23:59 23:59 23:59 23:59 Intake Total 50 Output Total 350 Balance -300 - Lab Results Fish Bones: 03/09/18 23:55 Other Labs: Lab Results x24hrs 03/10/18 03/09/18 03/09/18 Range/Units 01:15 23:55 23:55 WBC (4.8-10.8) x10^3/uL RBC (4.20-5.40) 10^6/uL Hgb (12.0-16.0) g/dL Hct (37.0-47.0) % MCV (81.0-99.0) fL MCH (27.0-31.0) pg MCHC (32.0-36.0) g/dL RDW (12.0-15.0) % Plt Count (130-450) 10^3/uL MPV (7.9-10.8) fL Neut # (Auto) (1.5-6.6) 10^3/uL Lymph # (Auto) (1.5-3.5) 10^3/uL [place] # (Auto) (0.0-1.0) 10^3/uL Eos # (Auto) (0.0-0.7) 10^3/uL Baso # (Auto) (0.0-0.1) 10^3/uL Absolute Nucleated RBC x10^3/uL Nucleated RBC % /100WBC Fibrinogen 473 (220-496) mg/dL Uric Acid 4.5 (2.6-7.2) mg/dL AST 44 H (10-42) IU/L Lactate Dehydrogenase (91-225) IU/L Urine Creatinine 29.4 mg/dL Ur Total Protein Timed 39 mg/dL Protein/Creatinin Ratio 1.3 H (<=0.2) 03/09/18 03/09/18 Range/Units 23:55 23:55 WBC 11.8 H (4.8-10.8) x10^3/uL RBC 3.48 L (4.20-5.40) 10^6/uL Hgb 11.5 L (12.0-16.0) g/dL Hct 32.8 L (37.0-47.0) % MCV 94.3 (81.0-99.0) fL MCH 33.0 H (27.0-31.0) pg MCHC 35.0 (32.0-36.0) g/dL RDW 13.0 (12.0-15.0) % Plt Count 185 (130-450) 10^3/uL MPV 9.9 (7.9-10.8) fL Neut # (Auto) 8.4 H (1.5-6.6) 10^3/uL Lymph # (Auto) 2.3 (1.5-3.5) 10^3/uL [place] # (Auto) 0.8 (0.0-1.0) 10^3/uL Eos # (Auto) 0.2 (0.0-0.7) 10^3/uL Baso # (Auto) 0.1 (0.0-0.1) 10^3/uL Absolute Nucleated RBC 0.00 x10^3/uL Nucleated RBC % 0.0 /100WBC Fibrinogen (220-496) mg/dL Uric Acid (2.6-7.2) mg/dL AST (10-42) IU/L Lactate Dehydrogenase 222 (91-225) IU/L Urine Creatinine mg/dL Ur Total Protein Timed mg/dL Protein/Creatinin Ratio (<=0.2)
[2018-03-10 07:01] LABS: BASOPHILS # (AUTO) 0.1 10^3/uL (0.0-0.1); BASOPHILS % (AUTO) 0.5 %; EOSINOPHILS # (AUTO) 0.2 10^3/uL (0.0-0.7); EOSINOPHILS % (AUTO) 1.7 %; HGB - HEMOGLOBIN 11.9 g/dL (12.0-16.0); LYMPHOCYTES # (AUTO) 1.7 10^3/uL (1.5-3.5); LYMPHOCYTES % (AUTO) 15.1 %; MEAN CORPUSCULAR HEMOGLOBIN 32.7 pg (27.0-31.0); MEAN CORPUSCULAR HGB CONC 34.5 g/dL (32.0-36.0); MEAN CORPUSCULAR VOLUME 94.8 fL (81.0-99.0); MEAN PLATELET VOLUME 9.5 fL (7.9-10.8); MONOCYTES # (AUTO) 0.7 10^3/uL (0.0-1.0); MONOCYTES % (AUTO) 6.4 %; NEUTROPHILS # (AUTO) 8.4 10^3/uL (1.5-6.6); NEUTROPHILS % (AUTO) 76.3 %; PLT - PLATELET COUNT 198 10^3/uL (130-450); RED BLOOD COUNT 3.64 10^6/uL (4.20-5.40); RED CELL DISTRIBUTION WIDTH 13.1 % (12.0-15.0)
[2018-03-10 07:20] LABS: CALCIUM 8.4 mg/dL (8.5-10.3); CREATININE 0.4 mg/dL (0.4-1.0); MAGNESIUM 3.2 mg/dL (1.7-2.8); URIC ACID 5.1 mg/dL (2.6-7.2)
[2018-03-10] MEDS: MAGNESIUM SULFATE IN WATER 20 GM/500 ML IV.SOLN IV SCH ×3 (08:22→21:40)
[2018-03-10 08:25] LABS: CREATININE,URINE 24.3 mg/dL; PROTEIN/CREATININE RATIO,URINE 1.7 (<=0.2)
[2018-03-10] MEDS ORDERED: LABETALOL 20 MG/4 ML SYRINGE IVP ONE (08:42)
[2018-03-10] MEDS: LABETALOL 100 MG TABLET PO SCH ×3 (08:44→20:29)
[2018-03-10] MEDS: ACETAMINOPHEN 500 MG TABLET PO PRN ×3 (08:44→20:29)
[2018-03-10] MEDS: DOCUSATE SODIUM 100 MG CAPSULE PO SCH ×2 (08:44→20:29)
[2018-03-10] MEDS ORDERED: LABETALOL 5 MG/1 ML 20 ML MDV IVP ONE (09:00)
--- NOTE | 2018-03-10 11:04 | PREOP HISTORY & PHYSICAL ---
DATE OF SERVICE: 03/10/2018 Physician: Mariano Laguna MD IDENTIFICATION: The patient is a 27-year-old G3, P1 female who delivered at 37 weeks and 1 day on the 03/07/2018. CHIEF COMPLAINT: Preeclampsia. HISTORY OF PRESENT ILLNESS: Patient's antepartum course was complicated with volatile blood pressures. She had a protein creatinine ratio initially done, which was 0.2. She had had followup 24-hour total protein excretion, which showed a total protein excretion of 339 mg per 24 hours. Because of her blood pressure lability, and because she was turning 37 weeks, it was decided to proceed on with induction. This was performed in a stepwise fashion, and she delivered on 03/07/2018. Her course was noted to have elevated blood pressures. These ranged in the 140s/80s. For this reason, she was placed on labetalol 100 mg p.o. daily. She was requested to stay the evening of 03/09/2018, but insisted on going home. That evening, she developed some headache as well as feeling funny, and for this reason re-presented to Labor and Delivery. At that time, her blood pressures were running in the 165s/90s. She received repeat labetalol. Her labs were repeated, at which time her protein creatinine ratio was 1.2. Her AST and LDH had just gone over the threshold for elevated liver enzymes. The patient was very anxious at this time. For these reasons, she was administered labetalol as well as started on magnesium sulfate. PAST MEDICAL HISTORY: Positive for anxiety. PAST SURGICAL HISTORY: She has had breast augmentation, as well as TAB x2. ALLERGIES: NONE KNOWN. CURRENT MEDICATIONS: The patient is taking sertraline. HABITS: The patient denies use of alcohol, tobacco or street or addictive drugs. SOCIAL HISTORY: The patient lives in a stable safe environment at this time with a significant other. PHYSICAL EXAMINATION GENERAL: The patient is a well-developed, well-nourished white female. She is somewhat anxious at this time. VITAL SIGNS: On admission, blood pressures are 165/97. Her pulse was running in the 70s-80s. She was saturating in the high 90s. HEENT: Pupils are clear equal, round. Extraocular muscles are intact. CARDIOVASCULAR: Regular rate and rhythm without murmurs. LUNGS: Lung whalen are clear without rales or wheezes. ABDOMEN: Soft. Uterus is roughly U-3, is nontender. There is no CVA tenderness noted. EXTREMITIES: There is no calf tenderness. She has 3+ brisk DTRs. She has 3+ swelling. She has no clonus at this time. LABORATORY DATA: On admission, showed a sodium which was mildly depressed at 134. Her BUN was 8 and her creatinine was 0.4. Her uric acid was 5.1. Her magnesium following initiation of magnesium was 3.2, AST was minimally elevated at 59, LDH was minimally elevated at 230. Her platelets have remained stable, in fact increased, and they are 198. Her protein creatinine ratio this morning, however, is 1.7. ASSESSMENT AND PLAN: A 27-year-old G3, P1, AB1, 3 female who is 3 days with severe preeclampsia. At this particular time, we have started magnesium sulfate for seizure protection. We have also initiated labetalol both IV and p.o. for blood pressure control. She is currently receiving 2.5 mg of magnesium sulfate, as well as labetalol 100 mg q.i.d. with augmented IV push labetalol, We will be doing strict Is and Os. We will repeat her labs at 1200. This case has been discussed with Dr. Mariano Jesus, who will be assuming her care at this time. The patient has been informed that she will need at least 24 hours of magnesium sulfate. TD: 03/10/2018 10:17
[2018-03-10 12:10] LABS: BASOPHILS % (AUTO) 0.4 %; EOSINOPHILS # (AUTO) 0.2 10^3/uL (0.0-0.7); EOSINOPHILS % (AUTO) 1.6 %; HGB - HEMOGLOBIN 11.4 g/dL (12.0-16.0); LYMPHOCYTES # (AUTO) 1.5 10^3/uL (1.5-3.5); LYMPHOCYTES % (AUTO) 15.2 %; MEAN CORPUSCULAR HEMOGLOBIN 32.9 pg (27.0-31.0); MEAN CORPUSCULAR HGB CONC 34.9 g/dL (32.0-36.0); MEAN CORPUSCULAR VOLUME 94.2 fL (81.0-99.0); MEAN PLATELET VOLUME 9.6 fL (7.9-10.8); MONOCYTES # (AUTO) 0.7 10^3/uL (0.0-1.0); MONOCYTES % (AUTO) 7.3 %; NEUTROPHILS # (AUTO) 7.5 10^3/uL (1.5-6.6); NEUTROPHILS % (AUTO) 75.5 %; PLT - PLATELET COUNT 196 10^3/uL (130-450); RED BLOOD COUNT 3.46 10^6/uL (4.20-5.40); RED CELL DISTRIBUTION WIDTH 12.9 % (12.0-15.0); WHITE BLOOD COUNT 9.9 x10^3/uL (4.8-10.8)
[2018-03-10 12:23] LABS: MAGNESIUM 4.9 mg/dL (1.7-2.8); URIC ACID 5.6 mg/dL (2.6-7.2)
--- NOTE | 2018-03-10 13:29 | PROVIDER PROGRESS NOTE ---
Subjective - Prog Note Date Prog Note Date: 03/10/18 Prog Note Time: 12:45 - Subjective Subjective: Saniya is a 27-year-old woman who is developed preeclampsia. She was admitted by [facility] last night and Dr. Laguna was called into consultation. Dr. Jeffries did a formal S Sanderson a sign out to me. Currently, patient has a mild to3/10 frontal headache with some scintillation. She had scintillation prior to and the intensity of the visual changes have not progressed. She reports no right upper quadrant or epigastric pain. She continues to note mild pedal edema. With all the hospital activity she reports little or no sleep. I reminded her that Ambien is available but she declines over worries concerning breast-feeding. Her diuresis is begun and she is making frequent trips to the commode. We offered Bruner catheter to ease her constant up and down and to obtain a better urine output. She declines. Objective - Vital Signs/Intake & Output Vital Signs: Vital Signs x48h Temp Pulse Resp BP Pulse Ox 03/10/18 12:30 92 148/73 H 03/10/18 11:30 88 131/79 H 03/10/18 09:45 151/85 H 03/10/18 09:30 149/84 H 03/10/18 09:20 152/82 H 03/10/18 09:05 157/98 H 03/10/18 09:00 167/99 H 03/10/18 08:30 97 158/89 H 03/10/18 08:18 156/87 H 03/10/18 07:41 97.9 F 83 18 140/82 H 97 03/10/18 07:00 157/99 H Intake & Output: Intake & Output 03/07/18 03/08/18 03/09/18 03/10/18 23:59 23:59 23:59 23:59 Intake Total 890 Output Total 2400 Balance -1510 - Lab Results Fish Bones: 03/10/18 12:04 03/10/18 06:54 Other Labs: Lab Results x24hrs 03/10/18 03/10/18 03/10/18 Range/Units 12:04 12:04 12:04 WBC 9.9 (4.8-10.8) x10^3/uL RBC 3.46 L (4.20-5.40) 10^6/uL Hgb 11.4 L (12.0-16.0) g/dL Hct 32.5 L (37.0-47.0) % MCV 94.2 (81.0-99.0) fL MCH 32.9 H (27.0-31.0) pg MCHC 34.9 (32.0-36.0) g/dL RDW 12.9 (12.0-15.0) % Plt Count 196 (130-450) 10^3/uL MPV 9.6 (7.9-10.8) fL Neut # (Auto) 7.5 H (1.5-6.6) 10^3/uL Lymph # (Auto) 1.5 (1.5-3.5) 10^3/uL [place] # (Auto) 0.7 (0.0-1.0) 10^3/uL Eos # (Auto) 0.2 (0.0-0.7) 10^3/uL Baso # (Auto) 0.0 (0.0-0.1) 10^3/uL Absolute Nucleated RBC 0.00 x10^3/uL Nucleated RBC % 0.0 /100WBC Fibrinogen 469 (220-496) mg/dL Sodium (135-145) mmol/L Potassium (3.5-5.0) mmol/L Chloride (101-111) mmol/L Carbon Dioxide (21-32) mmol/L Anion Gap (6-13) BUN (6-20) mg/dL Creatinine (0.4-1.0) mg/dL Estimated GFR (MDRD) (>89) Glucose (70-100) mg/dL Uric Acid 5.6 (2.6-7.2) mg/dL Calcium (8.5-10.3) mg/dL Magnesium 4.9 H (1.7-2.8) mg/dL AST 68 H (10-42) IU/L Lactate Dehydrogenase (91-225) IU/L Urine Creatinine mg/dL Ur Total Protein Timed mg/dL Protein/Creatinin Ratio (<=0.2) 03/10/18 03/10/18 03/10/18 Range/Units 12:04 07:52 06:54 WBC (4.8-10.8) x10^3/uL RBC (4.20-5.40) 10^6/uL Hgb (12.0-16.0) g/dL Hct (37.0-47.0) % MCV (81.0-99.0) fL MCH (27.0-31.0) pg MCHC (32.0-36.0) g/dL RDW (12.0-15.0) % Plt Count (130-450) 10^3/uL MPV (7.9-10.8) fL Neut # (Auto) (1.5-6.6) 10^3/uL Lymph # (Auto) (1.5-3.5) 10^3/uL [place] # (Auto) (0.0-1.0) 10^3/uL Eos # (Auto) (0.0-0.7) 10^3/uL Baso # (Auto) (0.0-0.1) 10^3/uL Absolute Nucleated RBC x10^3/uL Nucleated RBC % /100WBC Fibrinogen (220-496) mg/dL Sodium (135-145) mmol/L Potassium (3.5-5.0) mmol/L Chloride (101-111) mmol/L Carbon Dioxide (21-32) mmol/L Anion Gap (6-13) BUN (6-20) mg/dL Creatinine (0.4-1.0) mg/dL Estimated GFR (MDRD) (>89) Glucose (70-100) mg/dL Uric Acid (2.6-7.2) mg/dL Calcium (8.5-10.3) mg/dL Magnesium (1.7-2.8) mg/dL AST (10-42) IU/L Lactate Dehydrogenase 223 230 H (91-225) IU/L Urine Creatinine 24.3 mg/dL Ur Total Protein Timed 41 mg/dL Protein/Creatinin Ratio 1.7 H (<=0.2) 03/10/18 03/10/18 03/10/18 Range/Units 06:54 06:54 01:15 WBC 11.0 H (4.8-10.8) x10^3/uL RBC 3.64 L (4.20-5.40) 10^6/uL Hgb 11.9 L (12.0-16.0) g/dL Hct 34.5 L (37.0-47.0) % MCV 94.8 (81.0-99.0) fL MCH 32.7 H (27.0-31.0) pg MCHC 34.5 (32.0-36.0) g/dL RDW 13.1 (12.0-15.0) % Plt Count 198 (130-450) 10^3/uL MPV 9.5 (7.9-10.8) fL Neut # (Auto) 8.4 H (1.5-6.6) 10^3/uL Lymph # (Auto) 1.7 (1.5-3.5) 10^3/uL [place] # (Auto) 0.7 (0.0-1.0) 10^3/uL Eos # (Auto) 0.2 (0.0-0.7) 10^3/uL Baso # (Auto) 0.1 (0.0-0.1) 10^3/uL Absolute Nucleated RBC 0.01 x10^3/uL Nucleated RBC % 0.1 /100WBC Fibrinogen (220-496) mg/dL Sodium 134 L (135-145) mmol/L Potassium 4.2 (3.5-5.0) mmol/L Chloride 105 (101-111) mmol/L Carbon Dioxide 22 (21-32) mmol/L Anion Gap 7.0 (6-13) BUN 8 (6-20) mg/dL Creatinine 0.4 (0.4-1.0) mg/dL Estimated GFR (MDRD) 190 (>89) Glucose 89 (70-100) mg/dL Uric Acid 5.1 (2.6-7.2) mg/dL Calcium 8.4 L (8.5-10.3) mg/dL Magnesium 3.2 H (1.7-2.8) mg/dL AST 59 H (10-42) IU/L Lactate Dehydrogenase (91-225) IU/L Urine Creatinine 29.4 mg/dL Ur Total Protein Timed 39 mg/dL Protein/Creatinin Ratio 1.3 H (<=0.2) 03/09/18 03/09/18 03/09/18 Range/Units 23:55 23:55 23:55 WBC 11.8 H (4.8-10.8) x10^3/uL RBC 3.48 L (4.20-5.40) 10^6/uL Hgb 11.5 L (12.0-16.0) g/dL Hct 32.8 L (37.0-47.0) % MCV 94.3 (81.0-99.0) fL MCH 33.0 H (27.0-31.0) pg MCHC 35.0 (32.0-36.0) g/dL RDW 13.0 (12.0-15.0) % Plt Count 185 (130-450) 10^3/uL MPV 9.9 (7.9-10.8) fL Neut # (Auto) 8.4 H (1.5-6.6) 10^3/uL Lymph # (Auto) 2.3 (1.5-3.5) 10^3/uL [place] # (Auto) 0.8 (0.0-1.0) 10^3/uL Eos # (Auto) 0.2 (0.0-0.7) 10^3/uL Baso # (Auto) 0.1 (0.0-0.1) 10^3/uL Absolute Nucleated RBC 0.00 x10^3/uL Nucleated RBC % 0.0 /100WBC Fibrinogen 473 (220-496) mg/dL Sodium (135-145) mmol/L Potassium (3.5-5.0) mmol/L Chloride (101-111) mmol/L Carbon Dioxide (21-32) mmol/L Anion Gap (6-13) BUN (6-20) mg/dL Creatinine (0.4-1.0) mg/dL Estimated GFR (MDRD) (>89) Glucose (70-100) mg/dL Uric Acid 4.5 (2.6-7.2) mg/dL Calcium (8.5-10.3) mg/dL Magnesium (1.7-2.8) mg/dL AST 44 H (10-42) IU/L Lactate Dehydrogenase (91-225) IU/L Urine Creatinine mg/dL Ur Total Protein Timed mg/dL Protein/Creatinin Ratio (<=0.2) 03/09/18 Range/Units 23:55 WBC (4.8-10.8) x10^3/uL RBC (4.20-5.40) 10^6/uL Hgb (12.0-16.0) g/dL Hct (37.0-47.0) % MCV (81.0-99.0) fL MCH (27.0-31.0) pg MCHC (32.0-36.0) g/dL RDW (12.0-15.0) % Plt Count (130-450) 10^3/uL MPV (7.9-10.8) fL Neut # (Auto) (1.5-6.6) 10^3/uL Lymph # (Auto) (1.5-3.5) 10^3/uL [place] # (Auto) (0.0-1.0) 10^3/uL Eos # (Auto) (0.0-0.7) 10^3/uL Baso # (Auto) (0.0-0.1) 10^3/uL Absolute Nucleated RBC x10^3/uL Nucleated RBC % /100WBC Fibrinogen (220-496) mg/dL Sodium (135-145) mmol/L Potassium (3.5-5.0) mmol/L Chloride (101-111) mmol/L Carbon Dioxide (21-32) mmol/L Anion Gap (6-13) BUN (6-20) mg/dL Creatinine (0.4-1.0) mg/dL Estimated GFR (MDRD) (>89) Glucose (70-100) mg/dL Uric Acid (2.6-7.2) mg/dL Calcium (8.5-10.3) mg/dL Magnesium (1.7-2.8) mg/dL AST (10-42) IU/L Lactate Dehydrogenase 222 (91-225) IU/L Urine Creatinine mg/dL Ur Total Protein Timed mg/dL Protein/Creatinin Ratio (<=0.2) Physical Exam - Physical Exam General: positive: No acute distress, Well developed/nourished HEENT: positive: Moist mucous membranes, Dentition normal Neck: positive: Supple w/out meningeal sx Cardiac: positive: Regular Rate, Other (No murmur gallop or rub present) Resipratory: positive: Clear to ausultation stephania Abdomen: positive: Normal Bowel sounds Female : positive: Enlarged uterus (14 weeks size, nontender firm) Extremities: positive: Other (Mild pedal edema) Skin: positive: Warm and dry Neurologic: positive: Alert and Oriented X 3 PSYCH: positive: Anxious (Patient states she is somewhat anxious and that sleep disturbance may be a factor.) Assessment/Plan - Assessment/Plan Assessment: preeclampsia occurs in 3-5% of PIH episodes. Atypical preeclampsia does have a seizure risk and therefore mag sulfate is recommended 2472 hours. Currently mag sulfate is in the therapeutic range. Patient declines Bruner catheter and therefore meticulous attention to urine output is required. Doubt that the headache is a INFO ANALYST manifestation. Labetalol is holding blood pressures and check. Plan: Plan: * Maintain rest with prophylactic SCDs. * Continue mag drip at 2.5 mg/h. * Recheck mag level and PIH labs at midnight. * Continue seizure precautions.
[2018-03-10 13:35] LABS: CREATININE,URINE 22.2 mg/dL; PROTEIN/CREATININE RATIO,URINE 1.6 (<=0.2)
[2018-03-10] MEDS ORDERED: LIDOCAINE 2% URO-JET 5 ML SYRINGE UR ONE (20:15)
[2018-03-10] MEDS: ZOLPIDEM 5 MG TABLET PO PRN (21:00)
[2018-03-10 21:30] LABS: PROTEIN/CREATININE RATIO,URINE 0.8 (<=0.2)
[2018-03-11] MEDS: LABETALOL 100 MG TABLET PO SCH ×3 (04:27→21:08)
[2018-03-11] MEDS: MAGNESIUM SULFATE IN WATER 20 GM/500 ML IV.SOLN IV SCH (04:57)
[2018-03-11 08:00] LABS: BASOPHILS % (AUTO) 0.5 %; EOSINOPHILS # (AUTO) 0.2 10^3/uL (0.0-0.7); EOSINOPHILS % (AUTO) 1.9 %; HGB - HEMOGLOBIN 11.7 g/dL (12.0-16.0); LYMPHOCYTES # (AUTO) 1.5 10^3/uL (1.5-3.5); LYMPHOCYTES % (AUTO) 16.6 %; MEAN CORPUSCULAR HEMOGLOBIN 33.1 pg (27.0-31.0); MEAN CORPUSCULAR HGB CONC 34.4 g/dL (32.0-36.0); MEAN CORPUSCULAR VOLUME 96.1 fL (81.0-99.0); MONOCYTES # (AUTO) 0.6 10^3/uL (0.0-1.0); MONOCYTES % (AUTO) 6.3 %; NEUTROPHILS # (AUTO) 6.6 10^3/uL (1.5-6.6); NEUTROPHILS % (AUTO) 74.7 %; PLT - PLATELET COUNT 202 10^3/uL (130-450); RED BLOOD COUNT 3.53 10^6/uL (4.20-5.40); RED CELL DISTRIBUTION WIDTH 12.9 % (12.0-15.0); WHITE BLOOD COUNT 8.9 x10^3/uL (4.8-10.8)
--- NOTE | 2018-03-11 08:16 | PROVIDER PROGRESS NOTE ---
Subjective - Prog Note Date Prog Note Date: 03/11/18 Prog Note Time: 07:45 - Subjective Pt reports feeling: Improved Subjective: Patient feels much better last night after insertion of the Bruner catheter and a dose of Ambien. She slept well and is now rested. Patient repair notes a mild frontal headache grade 3/10 after starting magnesium sulfate. She also notes some blurry vision but no scomatoma. It was explained that the symptoms are common side effects with mag sulfate drips.There are no focal neurologic signs. She has no epigastric tenderness or right upper quadrant tenderness. She notes a noticeable decrease in pedal and finger edema. Pathophysiology of preeclampsia was explained. She was encouraged not to "over think" her situation and to simply attempt to comply with our recommendations. After realizing the advantages of Bruner and Ambien, she is more receptive to our recommendations. She is anxious for discharge, but I cautioned that we need to get over the mag sulfate sabine, give her body time to readjust and monitor her blood pressures to titrate her labetalol dose appropriately. She is cautioned to expect 1 or 2 more full days of observation/hospitalization. Objective - Vital Signs/Intake & Output Vital Signs: Vital Signs x48h Temp Pulse Resp BP BP Pulse Ox 03/11/18 07:30 97.7 F 79 16 116/70 97 03/11/18 06:00 98.1 F 84 16 134/82 H 96 03/11/18 04:59 72 18 143/74 H 95 03/11/18 04:10 133/79 H 95 03/11/18 03:05 134/73 H 97 03/11/18 02:00 117/81 H 03/11/18 01:00 97.9 F 138/75 H 96 03/11/18 00:57 14 Intake & Output: Intake & Output 03/08/18 03/09/18 03/10/18 03/11/18 23:59 23:59 23:59 23:59 Intake Total 3027.458 705.208 Output Total 6400 2050 Balance -3372.542 -1344.792 - Lab Results Fish Bones: 03/10/18 12:04 03/10/18 06:54 Other Labs: Lab Results x24hrs 03/10/18 03/10/18 03/10/18 Range/Units 21:10 18:08 13:00 WBC (4.8-10.8) x10^3/uL RBC (4.20-5.40) 10^6/uL Hgb (12.0-16.0) g/dL Hct (37.0-47.0) % MCV (81.0-99.0) fL MCH (27.0-31.0) pg MCHC (32.0-36.0) g/dL RDW (12.0-15.0) % Plt Count (130-450) 10^3/uL MPV (7.9-10.8) fL Neut # (Auto) (1.5-6.6) 10^3/uL Lymph # (Auto) (1.5-3.5) 10^3/uL [place] # (Auto) (0.0-1.0) 10^3/uL Eos # (Auto) (0.0-0.7) 10^3/uL Baso # (Auto) (0.0-0.1) 10^3/uL Absolute Nucleated RBC x10^3/uL Nucleated RBC % /100WBC Fibrinogen (220-496) mg/dL Uric Acid (2.6-7.2) mg/dL Magnesium 5.5 H* (1.7-2.8) mg/dL AST (10-42) IU/L Lactate Dehydrogenase (91-225) IU/L Urine Creatinine 22.0 22.2 mg/dL Ur Total Protein Timed 18 35 mg/dL Protein/Creatinin Ratio 0.8 H 1.6 H (<=0.2) 03/10/18 03/10/18 03/10/18 Range/Units 12:04 12:04 12:04 WBC 9.9 (4.8-10.8) x10^3/uL RBC 3.46 L (4.20-5.40) 10^6/uL Hgb 11.4 L (12.0-16.0) g/dL Hct 32.5 L (37.0-47.0) % MCV 94.2 (81.0-99.0) fL MCH 32.9 H (27.0-31.0) pg MCHC 34.9 (32.0-36.0) g/dL RDW 12.9 (12.0-15.0) % Plt Count 196 (130-450) 10^3/uL MPV 9.6 (7.9-10.8) fL Neut # (Auto) 7.5 H (1.5-6.6) 10^3/uL Lymph # (Auto) 1.5 (1.5-3.5) 10^3/uL [place] # (Auto) 0.7 (0.0-1.0) 10^3/uL Eos # (Auto) 0.2 (0.0-0.7) 10^3/uL Baso # (Auto) 0.0 (0.0-0.1) 10^3/uL Absolute Nucleated RBC 0.00 x10^3/uL Nucleated RBC % 0.0 /100WBC Fibrinogen 469 (220-496) mg/dL Uric Acid 5.6 (2.6-7.2) mg/dL Magnesium 4.9 H (1.7-2.8) mg/dL AST 68 H (10-42) IU/L Lactate Dehydrogenase (91-225) IU/L Urine Creatinine mg/dL Ur Total Protein Timed mg/dL Protein/Creatinin Ratio (<=0.2) 03/10/18 03/10/18 Range/Units 12:04 07:52 WBC (4.8-10.8) x10^3/uL RBC (4.20-5.40) 10^6/uL Hgb (12.0-16.0) g/dL Hct (37.0-47.0) % MCV (81.0-99.0) fL MCH (27.0-31.0) pg MCHC (32.0-36.0) g/dL RDW (12.0-15.0) % Plt Count (130-450) 10^3/uL MPV (7.9-10.8) fL Neut # (Auto) (1.5-6.6) 10^3/uL Lymph # (Auto) (1.5-3.5) 10^3/uL [place] # (Auto) (0.0-1.0) 10^3/uL Eos # (Auto) (0.0-0.7) 10^3/uL Baso # (Auto) (0.0-0.1) 10^3/uL Absolute Nucleated RBC x10^3/uL Nucleated RBC % /100WBC Fibrinogen (220-496) mg/dL Uric Acid (2.6-7.2) mg/dL Magnesium (1.7-2.8) mg/dL AST (10-42) IU/L Lactate Dehydrogenase 223 (91-225) IU/L Urine Creatinine 24.3 mg/dL Ur Total Protein Timed 41 mg/dL Protein/Creatinin Ratio 1.7 H (<=0.2) Physical Exam - Physical Exam General: positive: No acute distress, Other (Less anxious than yesterday) HEENT: positive: EOMI, Moist mucous membranes Neck: positive: Supple w/out meningeal sx, No JVD Cardiac: positive: Regular Rate, Other (No significant murmur or gallop) Resipratory: positive: Clear to ausultation stephania (No organomegaly or RUQ tenderness) Female : positive: Enlarged uterus (16-17 week size nontender firm), Other ( Mild lochia rubra non-foul (reported)) Extremities: positive: Non tender (SCDs on and working), Other (Mild pedal edema ) Skin: positive: Warm and dry Neurologic: positive: Alert and Oriented X 3, Normal reflexes (Left leg +2 patellar, right leg +3 patellar) Assessment/Plan - Assessment/Plan Assessment: Clinically the patient is improving after diuresis and rest. Blood pressure values normalizing with labetalol. Cath protein creatinine ratio was significantly lower than clean-catch. Await morning labs. If morning labs are normalized, we can discontinue mag sulfate drip and associated orders. Plan: PLAN * Continue supportive care. * Await morning labs to determine status of mag sulfate drip. * Advance diet. * Change labetalol dosing schedule to 200 twice daily
[2018-03-11 08:25] LABS: URIC ACID 5.6 mg/dL (2.6-7.2)
[2018-03-11 08:26] LABS: PROTEIN/CREATININE RATIO,URINE 0.5 (<=0.2)
[2018-03-11] MEDS: ACETAMINOPHEN 500 MG TABLET PO PRN (08:36)
[2018-03-11] MEDS: DOCUSATE SODIUM 100 MG CAPSULE PO SCH ×2 (08:37→21:08)
--- NOTE | 2018-03-11 08:37 | PROVIDER PROGRESS NOTE ---
Subjective - Prog Note Date Prog Note Date: 03/10/18 Prog Note Time: 22:25 - Subjective Pt reports feeling: No change Subjective: Via telephone, I reviewed the her care with Eleanor and ERIK, the nurses caring for her. Her magnesium level is therapeutic and there are no clinical danger signs such as absent reflexes. However, urine/creatinine urine protein/ creatinine ratios are skewed upward because of contamination from lochia. Additionally the patient is having to arise from bed every 1 - 2 hours to urinate. The constant activity is further depriving her of rest. Additionally , without reliable real-time knowledge of urine output, management of mag sulfate drip is suboptimal or and in the event of renal shutdown a dangerous overdose each could occur. Nursing intends to talk to patient concerning this issue. She finally relented and excepted Bruner catheter and dose of Ambien. Objective - Vital Signs/Intake & Output Vital Signs: Vital Signs x48h Temp Pulse Resp BP BP Pulse Ox 03/11/18 07:30 97.7 F 79 16 116/70 97 03/11/18 06:00 98.1 F 84 16 134/82 H 96 03/11/18 04:59 72 18 143/74 H 95 03/11/18 04:10 133/79 H 95 03/11/18 03:05 134/73 H 97 03/11/18 02:00 117/81 H 03/11/18 01:00 97.9 F 138/75 H 96 03/11/18 00:57 14 Intake & Output: Intake & Output 03/08/18 03/09/18 03/10/18 03/11/18 23:59 23:59 23:59 23:59 Intake Total 3027.458 705.208 Output Total 6400 2050 Balance -3372.542 -1344.792 - Lab Results Fish Bones: 03/11/18 07:54 03/10/18 06:54 Other Labs: Lab Results x24hrs 03/11/18 03/11/18 03/11/18 Range/Units 07:54 07:54 07:48 WBC 8.9 (4.8-10.8) x10^3/uL RBC 3.53 L (4.20-5.40) 10^6/uL Hgb 11.7 L (12.0-16.0) g/dL Hct 33.9 L (37.0-47.0) % MCV 96.1 (81.0-99.0) fL MCH 33.1 H (27.0-31.0) pg MCHC 34.4 (32.0-36.0) g/dL RDW 12.9 (12.0-15.0) % Plt Count 202 (130-450) 10^3/uL MPV 9.0 (7.9-10.8) fL Neut # (Auto) 6.6 (1.5-6.6) 10^3/uL Lymph # (Auto) 1.5 (1.5-3.5) 10^3/uL [place] # (Auto) 0.6 (0.0-1.0) 10^3/uL Eos # (Auto) 0.2 (0.0-0.7) 10^3/uL Baso # (Auto) 0.0 (0.0-0.1) 10^3/uL Absolute Nucleated RBC 0.00 x10^3/uL Nucleated RBC % 0.0 /100WBC Fibrinogen (220-496) mg/dL Uric Acid 5.6 (2.6-7.2) mg/dL Magnesium (1.7-2.8) mg/dL AST 78 H (10-42) IU/L Lactate Dehydrogenase (91-225) IU/L Urine Creatinine 29.0 mg/dL Ur Total Protein Timed 15 mg/dL Protein/Creatinin Ratio 0.5 H (<=0.2) 03/10/18 03/10/18 03/10/18 Range/Units 21:10 18:08 13:00 WBC (4.8-10.8) x10^3/uL RBC (4.20-5.40) 10^6/uL Hgb (12.0-16.0) g/dL Hct (37.0-47.0) % MCV (81.0-99.0) fL MCH (27.0-31.0) pg MCHC (32.0-36.0) g/dL RDW (12.0-15.0) % Plt Count (130-450) 10^3/uL MPV (7.9-10.8) fL Neut # (Auto) (1.5-6.6) 10^3/uL Lymph # (Auto) (1.5-3.5) 10^3/uL [place] # (Auto) (0.0-1.0) 10^3/uL Eos # (Auto) (0.0-0.7) 10^3/uL Baso # (Auto) (0.0-0.1) 10^3/uL Absolute Nucleated RBC x10^3/uL Nucleated RBC % /100WBC Fibrinogen (220-496) mg/dL Uric Acid (2.6-7.2) mg/dL Magnesium 5.5 H* (1.7-2.8) mg/dL AST (10-42) IU/L Lactate Dehydrogenase (91-225) IU/L Urine Creatinine 22.0 22.2 mg/dL Ur Total Protein Timed 18 35 mg/dL Protein/Creatinin Ratio 0.8 H 1.6 H (<=0.2) 03/10/18 03/10/18 03/10/18 Range/Units 12:04 12:04 12:04 WBC 9.9 (4.8-10.8) x10^3/uL RBC 3.46 L (4.20-5.40) 10^6/uL Hgb 11.4 L (12.0-16.0) g/dL Hct 32.5 L (37.0-47.0) % MCV 94.2 (81.0-99.0) fL MCH 32.9 H (27.0-31.0) pg MCHC 34.9 (32.0-36.0) g/dL RDW 12.9 (12.0-15.0) % Plt Count 196 (130-450) 10^3/uL MPV 9.6 (7.9-10.8) fL Neut # (Auto) 7.5 H (1.5-6.6) 10^3/uL Lymph # (Auto) 1.5 (1.5-3.5) 10^3/uL [place] # (Auto) 0.7 (0.0-1.0) 10^3/uL Eos # (Auto) 0.2 (0.0-0.7) 10^3/uL Baso # (Auto) 0.0 (0.0-0.1) 10^3/uL Absolute Nucleated RBC 0.00 x10^3/uL Nucleated RBC % 0.0 /100WBC Fibrinogen 469 (220-496) mg/dL Uric Acid 5.6 (2.6-7.2) mg/dL Magnesium 4.9 H (1.7-2.8) mg/dL AST 68 H (10-42) IU/L Lactate Dehydrogenase (91-225) IU/L Urine Creatinine mg/dL Ur Total Protein Timed mg/dL Protein/Creatinin Ratio (<=0.2) / Range/Units 12:04 WBC (4.8-10.8) x10^3/uL RBC (4.20-5.40) 10^6/uL Hgb (12.0-16.0) g/dL Hct (37.0-47.0) % MCV (81.0-99.0) fL MCH (27.0-31.0) pg MCHC (32.0-36.0) g/dL RDW (12.0-15.0) % Plt Count (130-450) 10^3/uL MPV (7.9-10.8) fL Neut # (Auto) (1.5-6.6) 10^3/uL Lymph # (Auto) (1.5-3.5) 10^3/uL Dane # (Auto) (0.0-1.0) 10^3/uL Eos # (Auto) (0.0-0.7) 10^3/uL Baso # (Auto) (0.0-0.1) 10^3/uL Absolute Nucleated RBC x10^3/uL Nucleated RBC % /100WBC Fibrinogen (220-496) mg/dL Uric Acid (2.6-7.2) mg/dL Magnesium (1.7-2.8) mg/dL AST (10-42) IU/L Lactate Dehydrogenase 223 (91-225) IU/L Urine Creatinine mg/dL Ur Total Protein Timed mg/dL Protein/Creatinin Ratio (<=0.2)
[2018-03-11] MEDS ORDERED: SODIUM CHLORIDE FLUSH 0.9% 10 ML SYRINGE ONE (08:44)
--- NOTE | 2018-03-11 08:44 | PROVIDER PROGRESS NOTE ---
Subjective - Prog Note Date Prog Note Date: 03/11/18 Prog Note Time: 09:45 - Subjective Pt reports feeling: Improved Subjective: Patient is clinically improving and her laboratory values are stable. Therefore , magnesium sulfate drip and Bruner catheter were discontinued. Objective - Vital Signs/Intake & Output Vital Signs: Vital Signs x48h Temp Pulse Resp BP BP Pulse Ox 03/11/18 07:30 97.7 F 79 16 116/70 97 03/11/18 06:00 98.1 F 84 16 134/82 H 96 03/11/18 04:59 72 18 143/74 H 95 03/11/18 04:10 133/79 H 95 03/11/18 03:05 134/73 H 97 03/11/18 02:00 117/81 H 03/11/18 01:00 97.9 F 138/75 H 96 03/11/18 00:57 14 Intake & Output: Intake & Output 03/08/18 03/09/18 03/10/18 03/11/18 23:59 23:59 23:59 23:59 Intake Total 3027.458 705.208 Output Total 6400 2050 Balance -3372.542 -1344.792 - Lab Results Fish Bones: 03/11/18 07:54 03/10/18 06:54 Other Labs: Lab Results x24hrs 03/11/18 03/11/18 03/11/18 Range/Units 07:54 07:54 07:54 WBC (4.8-10.8) x10^3/uL RBC (4.20-5.40) 10^6/uL Hgb (12.0-16.0) g/dL Hct (37.0-47.0) % MCV (81.0-99.0) fL MCH (27.0-31.0) pg MCHC (32.0-36.0) g/dL RDW (12.0-15.0) % Plt Count (130-450) 10^3/uL MPV (7.9-10.8) fL Neut # (Auto) (1.5-6.6) 10^3/uL Lymph # (Auto) (1.5-3.5) 10^3/uL Preston # (Auto) (0.0-1.0) 10^3/uL Eos # (Auto) (0.0-0.7) 10^3/uL Baso # (Auto) (0.0-0.1) 10^3/uL Absolute Nucleated RBC x10^3/uL Nucleated RBC % /100WBC Fibrinogen (220-496) mg/dL Uric Acid 5.6 (2.6-7.2) mg/dL Magnesium 6.1 H* (1.7-2.8) mg/dL AST 78 H (10-42) IU/L Lactate Dehydrogenase 249 H (91-225) IU/L Urine Creatinine mg/dL Ur Total Protein Timed mg/dL Protein/Creatinin Ratio (<=0.2) 03/11/18 03/11/18 03/10/18 Range/Units 07:54 07:48 21:10 WBC 8.9 (4.8-10.8) x10^3/uL RBC 3.53 L (4.20-5.40) 10^6/uL Hgb 11.7 L (12.0-16.0) g/dL Hct 33.9 L (37.0-47.0) % MCV 96.1 (81.0-99.0) fL MCH 33.1 H (27.0-31.0) pg MCHC 34.4 (32.0-36.0) g/dL RDW 12.9 (12.0-15.0) % Plt Count 202 (130-450) 10^3/uL MPV 9.0 (7.9-10.8) fL Neut # (Auto) 6.6 (1.5-6.6) 10^3/uL Lymph # (Auto) 1.5 (1.5-3.5) 10^3/uL Preston # (Auto) 0.6 (0.0-1.0) 10^3/uL Eos # (Auto) 0.2 (0.0-0.7) 10^3/uL Baso # (Auto) 0.0 (0.0-0.1) 10^3/uL Absolute Nucleated RBC 0.00 x10^3/uL Nucleated RBC % 0.0 /100WBC Fibrinogen (220-496) mg/dL Uric Acid (2.6-7.2) mg/dL Magnesium (1.7-2.8) mg/dL AST (10-42) IU/L Lactate Dehydrogenase (91-225) IU/L Urine Creatinine 29.0 22.0 mg/dL Ur Total Protein Timed 15 18 mg/dL Protein/Creatinin Ratio 0.5 H 0.8 H (<=0.2) 03/10/18 03/10/18 03/10/18 Range/Units 18:08 13:00 12:04 WBC (4.8-10.8) x10^3/uL RBC (4.20-5.40) 10^6/uL Hgb (12.0-16.0) g/dL Hct (37.0-47.0) % MCV (81.0-99.0) fL MCH (27.0-31.0) pg MCHC (32.0-36.0) g/dL RDW (12.0-15.0) % Plt Count (130-450) 10^3/uL MPV (7.9-10.8) fL Neut # (Auto) (1.5-6.6) 10^3/uL Lymph # (Auto) (1.5-3.5) 10^3/uL Preston # (Auto) (0.0-1.0) 10^3/uL Eos # (Auto) (0.0-0.7) 10^3/uL Baso # (Auto) (0.0-0.1) 10^3/uL Absolute Nucleated RBC x10^3/uL Nucleated RBC % /100WBC Fibrinogen (220-496) mg/dL Uric Acid 5.6 (2.6-7.2) mg/dL Magnesium 5.5 H* 4.9 H (1.7-2.8) mg/dL AST 68 H (10-42) IU/L Lactate Dehydrogenase (91-225) IU/L Urine Creatinine 22.2 mg/dL Ur Total Protein Timed 35 mg/dL Protein/Creatinin Ratio 1.6 H (<=0.2) 03/10/18 03/10/18 03/10/18 Range/Units 12:04 12:04 12:04 WBC 9.9 (4.8-10.8) x10^3/uL RBC 3.46 L (4.20-5.40) 10^6/uL Hgb 11.4 L (12.0-16.0) g/dL Hct 32.5 L (37.0-47.0) % MCV 94.2 (81.0-99.0) fL MCH 32.9 H (27.0-31.0) pg MCHC 34.9 (32.0-36.0) g/dL RDW 12.9 (12.0-15.0) % Plt Count 196 (130-450) 10^3/uL MPV 9.6 (7.9-10.8) fL Neut # (Auto) 7.5 H (1.5-6.6) 10^3/uL Lymph # (Auto) 1.5 (1.5-3.5) 10^3/uL Preston # (Auto) 0.7 (0.0-1.0) 10^3/uL Eos # (Auto) 0.2 (0.0-0.7) 10^3/uL Baso # (Auto) 0.0 (0.0-0.1) 10^3/uL Absolute Nucleated RBC 0.00 x10^3/uL Nucleated RBC % 0.0 /100WBC Fibrinogen 469 (220-496) mg/dL Uric Acid (2.6-7.2) mg/dL Magnesium (1.7-2.8) mg/dL AST (10-42) IU/L Lactate Dehydrogenase 223 (91-225) IU/L Urine Creatinine mg/dL Ur Total Protein Timed mg/dL Protein/Creatinin Ratio (<=0.2)
[2018-03-11] MEDS ORDERED: SODIUM CHLORIDE FLUSH 0.9% 10 ML SYRINGE IVP PRN (09:44)
[2018-03-11] MEDS: ZOLPIDEM 5 MG TABLET PO PRN (21:07)
[2018-03-12 07:39] VITALS: BP 145/75
[2018-03-12] MEDS: DOCUSATE SODIUM 100 MG CAPSULE PO SCH (08:38)
[2018-03-12] MEDS: LABETALOL 100 MG TABLET PO SCH (08:39)
--- NOTE | 2018-03-12 10:13 | Discharge Plan ---
Discharge Plan Disposition: 01 Home, Self Care Condition: Good Diet: Regular Activity Restrictions: Activity as Tolerated Shower Restrictions: No Driving Restrictions: No Weight Bearing: Full Weight Follow-Up Care: Dietitian (Patient to begin 3 day dietary diary. She will then call the dietitian to review this and obtain dietary advice. She should also present to 3 day food diary to her usual family medicine physician.) No Smoking: If you smoke, Please STOP! Call for help.
--- NOTE | 2018-03-12 16:45 | DISCHARGE SUMMARY ---
Physician: Mariano Jesus MD DATE OF ADMISSION: 03/10/2018 DATE OF DISCHARGE: 03/12/2018 DIAGNOSIS: Preeclampsia, Anxiety COMPLICATIONS: None. HISTORY: Patient is a 27-year-old woman induced and delivered at 37 weeks 1 day for Mild Preeclampsia on 03/07/2018 and discharged on 03/09/18. In the evening, she was readmitted for worsening preeclampsia post by Dr. Mariano Laguna. Reference his detailed H and P. On discharge,, patient was placed on labetalol 100 daily with B/Ps 140s/80s. She insisted on early discharge on the . That evening, she developed headaches, dysphoria "funny feeling." Her creatinine ratio was noted to be 1.2 with an elevated AST and LDH. Anxiety was a factor. HOSPITAL COURSE: Patient was admitted and begun on IV magnesium sulfate per protocol. However, the patient refused a Bruner catheter and her urine outputs were closely monitored. On the morning of 03/10/2018, I assumed care as on-call grocery caddy. Patient was receiving labetalol oral 100 four times a day. She had a 3/10 frontal headache with some scintillation. Her blood pressures spiked at 167/99. On the morning of the , hemoglobin was 11.4 with platelets 196. LDH was elevated at 230. Serum protein, creatinine ratio was reported at 1.3. Uric acid 1.5, creatinine 0.4. Patient remained at rest with seizure precautions, but refused Bruner catheter. Without the Bruner, she was forced to arise from bed every 1-2 hours, thereby depriving her sleep for over 24 hours. Magnesium sulfate also intensified her headache. On the evening of the , she remitted and accepted Bruner catheter and Ambien. She slept well overnight. She diuresed. Her blood pressures came down on average 135/80. Her magnesium level was closely tracked and was 5.5. Once the catheter was on board, a better protein to creatinine ratio was obtained, which was 0.8. The lochia artificially elevated the protein/creatinine in prior clean catch specimen. Her AST remained 68. On the morning of hospital day #2, the patient awoke refreshed. Since her pressures responded and her symptoms had improved with marked decrease of edema, magnesium sulfate and Bruner catheter were removed. She began a full diet. She continued to nurse well and baby gained weight. Patient's mother solicited treatment advice from friends (Senior [employer] Engineer, Family Medicine) and they offered telephone advice on management of her care. Family believed that the patient needed calcium supplementation, magnesium supplementation and improved diet as she is a vegetarian. On hospital day #3, patient felt well and lobbied for discharge home. Her headache and visual changes had resolved. Physical exam found no right upper quadrant pain. We actively discussed discharge planning inclusive of maintaining a normal degree of activity, advising that others help with housework. Patient should walk daily. She had concerns about her calcium and magnesium levels as well as dietary issues. She was recommended to begin a 3-day food diary, return to a dietitian for analysis and counseling next week. Additionally, patient should seek advice of her Family Medicine doc concerning her diet and present the diary data to her as well. She was assured given the continued magnesium sulfate drip that her magnesium level is normal or slightly above currently. Redraws for serum calcium levels and magnesium and such should be done distant from this hospitalization and by her Family Medicine doc to determine what supplementations are needed. Warning signs were reviewed: if she develops persistent headache, scintillation /visual changes, right upper quadrant pain or return of edema, she should call our services immediately. Patient and family are concerned about blood pressure changes. She will obtain a reliable home blood pressure monitoring system and then check its values against blood pressure measurements taken by the [facility] for correlation. She is to report to us any blood pressure that is over 150 systolic or over 95 diastolic. FOLLOWUP: Patient is scheduled to have a routine followup with Kelli Arvizu CNM on Tuesday. At that time, blood pressure measurements can be reassessed. DISCHARGE MEDICATIONS 1. Tylenol for pain. 2. Ambien 10 mg 3 tabs only. 3. vitamins with iron. 4. Labetalol 200 oral twice a day TD: 03/12/2018 10:20 GAMA
== END 2018-03-12 12:00 | disposition home or self-care (01) | DRG 776 ==
LOC: WFO 23:21 → FBP 23:25 → WFO 03-10 02:16 → FBP 03-10 02:17
PROVIDERS: ADMIT Obstetrics & Gynecology; ATTEND Obstetrics & Gynecology
DX: O14.15 Severe pre-eclampsia, complicating the puerperium (principal); O99.345 Other mental disorders complicating the puerperium; F41.9 Anxiety disorder, unspecified; Z79.899 Other long term (current) drug therapy; O9A.23 Injury, poisoning and certain other consequences of external causes complicating the puerperium; R51 Headache; H53.8 Other visual disturbances; T47.4X5A Adverse effect of other laxatives, initial encounter; Y92.230 Patient room in hospital as the place of occurrence of the external cause
CPT/HCPCS: 36415; 80048; 82570; 83615; 83735; 84156; 84450; 84550; 85025; 85027; 85384; 99213

== ENCOUNTER 2018-09-15 09:28 | Outpatient (CLI) | payer MEDICAID ==
--- NOTE | 2018-09-15 13:51 | MRI Report ---
Reason: LEFT KNEE PAIN 3MTHS Procedure Date: 09/15/2018 Accession Number: [id number] / [id number] Procedure: MRI - Knee LT W/O CPT Code: FULL RESULT: EXAM: LEFT KNEE MRI WITHOUT CONTRAST EXAM DATE: 09/15/2018 10:31 AM. CLINICAL HISTORY: Left knee pain for 3 months. 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 COMPARISON: 06/22/2018 radiograph. TECHNIQUE: Multiplanar, multisequence T1-weighted and fluid-sensitive sequences of the knee without contrast. Other: None. FINDINGS: Bones: No fractures or subluxations. No marrow edema. No bone lesions. Articular Cartilage: Unremarkable. Medial Meniscus: The medial meniscus is intact. Lateral Meniscus: The lateral meniscus is intact. Cruciate Ligaments: The anterior and posterior cruciate ligaments are intact. Collateral Ligaments: The medial collateral and lateral collateral ligamentous structures are intact. Tendons: The quadriceps, patellar, semimembranosus, and popliteus tendons are unremarkable. Musculature: No edema or fatty atrophy. Other: No effusion. A small popliteal cyst is present. No loose bodies. The medial and lateral retinacula are intact. The subcutaneous tissues and fat pads are unremarkable. IMPRESSION: Small popliteal cyst. [facility] MUSCULOSKELETAL RADIOLOGY SECTION
== END 2018-09-15 09:29 | disposition home or self-care (01) ==
LOC: DI 09:28
PROVIDERS: ATTEND Orthopaedic Surgery Sports Medicine
DX: M71.22 Synovial cyst of popliteal space [Baker], left knee (principal)

== ENCOUNTER 2019-03-05 13:03 | Outpatient (CLI) | payer MEDICAID ==
[2019-03-05] MEDS ORDERED: BUFFERED LIDOCAINE 10 ML SYRINGE ONE (13:43)
--- NOTE | 2019-03-05 15:54 | Ultrasound Report ---
Reason: CYST,CYNOVIAL CYST OF POPLITEAL SPACE,LEFT KNEE,ST Procedure Date: 03/05/2019 Accession Number: [id number] / [id number] Procedure: US - US Drain/Inj Joint/Bursa W US CPT Code: 94215 FULL RESULT: EXAM: ULTRASOUND-GUIDED POPLITEAL FOSSA CYST ASPIRATION. EXAM DATE: 03/05/2019 01:22 PM. CLINICAL HISTORY: Cyst, synovial cyst of popliteal space, left knee, ST. COMPARISON: None. TECHNIQUE: Risks, benefits, and alternatives to the procedure were discussed with the patient. All questions answered. Written and verbal consent obtained. Patient was placed in the prone position and the skin overlying the cystic structure was marked with sonographic guidance. The skin was sterilely prepped and draped, and 1% buffered lidocaine was used for local anesthesia. An 17-gauge Yueh was advanced into the cystic structure and gelatinous substance was aspirated, approximately 5 cc. Upon completion, the catheter was removed. FINDINGS: A total of 5 mL of thick gelatinous substance was removed without immediate complication. Patient tolerated procedure well. Postprocedural images demonstrated decrease in size. IMPRESSION: Ultrasound-guided cyst aspiration without immediate complications. RECOMMENDATION: If symptoms recur or the patient experiences inadequate relief, ultrasound-guided repeat aspiration with saline wash and steroid injection could be considered. [facility]
[2019-03-05] MEDS ORDERED: BUFFERED LIDOCAINE 10 ML SYRINGE IU ONE (16:29)
== END 2019-03-05 13:04 | disposition home or self-care (01) ==
LOC: DI 13:03
PROVIDERS: ATTEND Orthopaedic Surgery Sports Medicine
DX: M71.22 Synovial cyst of popliteal space [Baker], left knee (principal); S76.312D Strain of muscle, fascia and tendon of the posterior muscle group at thigh level, left thigh, subsequent encounter
CPT/HCPCS: 20611

== ENCOUNTER 2022-07-09 10:51 | Outpatient (CLI) | payer MEDICAID ==
[2022-07-09 14:43] LABS: BASOPHILS # (AUTO) 0.1 10^3/uL (0.0-0.1); BASOPHILS % (AUTO) 0.7 %; EOSINOPHILS # (AUTO) 0.1 10^3/uL (0.0-0.7); HCT - HEMATOCRIT 38.9 % (37.0-47.0); HGB - HEMOGLOBIN 12.2 g/dL (12.0-16.0); LYMPHOCYTES # (AUTO) 1.5 10^3/uL (1.5-3.5); LYMPHOCYTES % (AUTO) 21.6 %; MEAN CORPUSCULAR HEMOGLOBIN 30.2 pg (27.0-31.0); MEAN CORPUSCULAR HGB CONC 31.4 g/dL (32.0-36.0); MEAN CORPUSCULAR VOLUME 96.3 fL (81.0-99.0); MEAN PLATELET VOLUME 10.4 fL (7.9-10.8); MONOCYTES # (AUTO) 0.6 10^3/uL (0.0-1.0); MONOCYTES % (AUTO) 8.2 %; NEUTROPHILS # (AUTO) 4.7 10^3/uL (1.5-6.6); NEUTROPHILS % (AUTO) 68.2 %; PLT - PLATELET COUNT 300 10^3/uL (130-450); RED BLOOD COUNT 4.04 10^6/uL (4.20-5.40); RED CELL DISTRIBUTION WIDTH 12.9 % (12.0-15.0); WHITE BLOOD COUNT 6.9 x10^3/uL (4.8-10.8)
[2022-07-09 15:12] LABS: THYROID STIMULATING HORMONE 1.31 uIU/mL (0.34-5.60)
[2022-07-09 15:22] LABS: ALBUMIN 3.8 g/dL (3.2-5.5); ALBUMIN/GLOBULIN RATIO 1.2 (1.0-2.2); BILIRUBIN,TOTAL 0.6 mg/dL (0.2-1.0); CREATININE 0.6 mg/dL (0.4-1.0); POTASSIUM 4.2 mmol/L (3.5-5.0)
== END 2022-07-09 10:52 | disposition home or self-care (01) ==
LOC: LAB.S 10:51
PROVIDERS: ATTEND Registered Nurse
DX: Z79.899 Other long term (current) drug therapy (principal); Z13.29 Encounter for screening for other suspected endocrine disorder
CPT/HCPCS: 36415; 80050